=== PATIENT | female | born 1945 | race Caucasian/White ===

== ENCOUNTER 2017-01-17 08:30 | Outpatient (CLI) | payer MEDICARE, MEDICAID ==
--- NOTE | 2017-01-17 10:39 | CT ---
CT CHEST WITHOUT CONTRAST: Date: 01/17/17 Multiple axial tomograms obtained through chest without IV enhancement. HISTORY: Follow-up pulmonary nodule. Comparison made to exam of 11/21/15. FINDINGS: The mass in anterior left upper lobe is again seen. In the axial plane today, this mass measures 1.7 x 1.5 cm. It is slightly larger in width when compared to the prior exam, at which time the width was 1.1 cm. AP dimension is stable. Calcified granuloma in the right middle lobe is unchanged. There are chronic lung parenchymal changes which appear stable. Mediastinum is unremarkable with nonspecific lymph nodes which appear stable. Images through the upper abdomen are unremarkable. IMPRESSION: The left upper lobe mass is minimally larger today as noted above. Lungs otherwise are unchanged. POS: REHANAH
== END 2017-01-17 08:31 | disposition home or self-care (01) ==
LOC: CT 08:30
PROVIDERS: ATTEND Internal Medicine
DX: R91.1 Solitary pulmonary nodule (principal); R91.8 Other nonspecific abnormal finding of lung field
CPT/HCPCS: 71250

== ENCOUNTER 2017-02-28 07:32 | Outpatient (CLI) | payer MEDICARE, MEDICAID ==
--- NOTE | 2017-02-28 15:37 | PET ---
NUCLEAR MEDICINE FDG PET CT: (Positron Emission Tomography) DATE: 02/28/17 HISTORY: 71-year-old female with solitary pulmonary nodule in left upper lobe. COMPARISON: None. TECHNIQUE: IV injection F-18 Fluorodeoxyglucose (FDG) dose: 12.2 mCi PET and attenuation-correction CT performed from skull base to proximal thighs. FINDINGS: SUV (standard uptake value) numbers given are maximum SUV's: The noncalcified, spiculated pulmonary nodule in the anterior segment of the left upper lobe is FDG-a vid, with SUV of 5.5. Based on its morphology and the FDG avidity, this is highly likely to represent primary lung cancer. There are no other hypermetabolic pulmonary nodules. There are no mediastinal or hilar hypermetabolic lymph nodes. There is no abnormally FDG-avid lesion within the abdomen, pelvis, or neck. No FDG-avid osseous lesions are identified. IMPRESSION: 1. Hypermetabolic pulmonary nodule in the anterior segment of left upper lobe is evidence for primar y lung cancer. 2. No evidence of metastatic disease. SUE Cotton POS: SHIVAM
== END 2017-02-28 07:33 | disposition home or self-care (01) ==
LOC: PET 07:32
PROVIDERS: ATTEND Internal Medicine
DX: R91.1 Solitary pulmonary nodule (principal)
CPT/HCPCS: 78815; A9552

== ENCOUNTER 2017-04-02 13:38 | Outpatient (CLI) | payer MEDICARE, MEDICAID | END 2017-04-02 13:39 | disposition home or self-care (01) | LOC: CP 13:38 | PROVIDERS: ATTEND Internal Medicine | DX: R91.8 Other nonspecific abnormal finding of lung field (principal); J44.9 Chronic obstructive pulmonary disease, unspecified | CPT/HCPCS: 94060; 94727; 94729 ==

== ENCOUNTER 2017-09-28 11:33 | Observation (INO) | payer MEDICARE, MEDICAID ==
[2017-09-28 12:04] LABS: Hemoglobin 13.1 g/dL (12.0-16.0); Mean Corpuscular HGB CONC 35.2 g/dL (32.0-36.0); Mean Corpuscular Hemoglobin 31.4 pg (27.0-31.0); Mean Corpuscular Volume 89.3 fL (78.0-98.0); Mean Platelet Volume 6.7 fL (7.4-10.4); Platelet Count 242 thou/uL (130-400); RBC Distribution Width 13.4 % (11.5-14.5); Red Blood Cell (RBC) Count 4.16 mill/uL (4.20-5.40); White Blood Cell (WBC) Count 11.3 thou/uL (4.8-10.8)
[2017-09-28 12:23] LABS: ALT (SGPT) 8 U/L (8-55); AST (SGOT) 5 U/L (5-34); Albumin 3.9 g/dL (3.4-4.8); Alkaline Phosphatase 58 U/L (40-150); Anion Gap 10 mmol/L (10-20); BUN (Urea Nitrogen) 11 mg/dL (9.8-20.1); Bilirubin, Total 0.2 mg/dL (0.2-1.2); CK (CPK) 97 U/L (29-168); Calc. Creatinine Clearance 0 mL/min (70-130); Calcium 9.2 mg/dL (7.8-10.44); Carbon Dioxide 24 mmol/L (23-31); Chloride 109 mmol/L (98-107); Estimated GFR-MDRD 71; Globulin 2.3 g/dL (2.4-3.5); Glucose 101 mg/dL (80-115); Protein, Total 6.2 g/dL (6.0-8.3); Sodium 139 mmol/L (136-145)
[2017-09-28] MEDS ORDERED: methylPREDNISolone Sod Succ/PF 125 MG/2 ML VIAL ONE (12:24)
[2017-09-28 12:27] LABS: Troponin I Less than 0.010 ng/mL (< 0.028)
--- NOTE | 2017-09-28 12:31 | RAD ---
PORTABLE CHEST 1 VIEW: DATE: 09/28/17. TIME: 11:06 a.m. History Shortness of breath, chest pain. FINDINGS: Comparison is made with the exam of 05/12/14. The heart size is normal. The lungs are expanded without focal areas of consolidation, pneumothorax, or pleural effusions. IMPRESSION: No acute process. POS: [facility]
[2017-09-28 12:36] LABS: CKMB 7.7 ng/mL (0-6.6)
[2017-09-28 12:39] LABS: #Eosinphils 0.3 thou/uL (0.0-0.7); #Lymphocytes 3.2 thou/uL (1.20-3.40); #Monocytes 0.8 thou/uL (0.11-0.59); %Basophils 0.3 % (0.0-1.0); %Eosinophils 3.1 % (0.0-10.0); %Lymphocytes 28.1 % (21.0-51.0); %Monocytes 6.9 % (0.0-10.0); %Neutrophils 61.7 % (42.0-75.0); Band 1 % (5-11); Eosinophils 4 % (0-10); Lymphocytes 18 % (21-51); MDiff Complete? YES; Monocytes 4 % (0-10); Neutrophil 73 % (42-75); PLT Morphology Comment Appears Adequate; RBC Morphology Normal
[2017-09-28] MEDS ORDERED: HYDROcodone/Acetaminophen 5/325 mg Tablet ONE ×2 (13:06→13:13)
[2017-09-28] MEDS ORDERED: Acetaminophen 325 MG TAB PO PRN (14:52)
[2017-09-28] MEDS ORDERED: cloNIDine 0.1 MG TAB PO PRN (14:52)
[2017-09-28] MEDS ORDERED: Milk Of Magnesia 30 ML UDCUP PO PRN (14:52)
[2017-09-28] MEDS ORDERED: Ondansetron ODT 4 MG TAB PO PRN (14:52)
[2017-09-28] MEDS ORDERED: Zolpidem Tartrate 5 MG TAB PO PRN (14:52)
[2017-09-28] MEDS ORDERED: Chloraseptic Spray 180 ml Bottle PO PRN (14:52)
[2017-09-28] MEDS ORDERED: Artificial Tears 18 DROP/0.9 ML EA EYE PRN (14:52)
[2017-09-28] MEDS ORDERED: hydrALAZINE 20 MG/ML VIAL SLOW IVP PRN (14:52)
[2017-09-28] MEDS ORDERED: Mag-Al 1200 mg/1200 mg/30 ML UDCUP PO PRN (14:52)
[2017-09-28] MEDS ORDERED: Sodium Chloride 0.65% Nasal 44 ML BOT EA NARE PRN (14:52)
[2017-09-28] MEDS ORDERED: Loratadine 10 MG TAB PO PRN (14:52)
[2017-09-28] MEDS ORDERED: Eucerin (Mineral Oil/Petrolatum,White) 30 gm Jar TOP PRN (14:52)
[2017-09-28] MEDS ORDERED: Nitroglycerin 0.4 MG TAB (25 Tab Bottle) SL PRN (14:52)
[2017-09-28] MEDS ORDERED: Ondansetron HCl/PF 4 MG/2 ML Vial IVP PRN (14:52)
[2017-09-28] MEDS ORDERED: Loperamide HCl 2 MG CAP PO PRN (14:52)
[2017-09-28] MEDS ORDERED: Senokot 8.6 MG TAB PO PRN (14:52)
[2017-09-28] MEDS ORDERED: Diabetic Tussin 200 MG/10 ML UDCUP PO PRN (14:52)
--- NOTE | 2017-09-28 15:04 | HP ---
PRIMARY CARE PHYSICIAN: Karen Le MD REASON FOR ADMISSION: Radiation-induced pneumonitis, chest discomfort. HISTORY OF PRESENT ILLNESS: This is a 72-year-old female, who was diagnosed with a left upper lobe s piculated lung mass back in 2015. She had biopsy of the lung mass, and subsequently, pathology repor t was negative for any malignancy. Patient had repeat imaging in 11/2015, which showed left upper lo be spiculated lung mass and the patient underwent PET scan early this year, which showed hypermetabol ic activity and worrisome for lung cancer. The patient was following an oncologist and she received radiation therapy. Her last radiation was on end of July. After radiation therapy, patient started having upper respiratory as well as lower respiratory symptoms. She has increasing amount of cough w ith intermittent scant amount of sputum. She also had hoarseness of voice. She also had intermitten t runny nose. She denies any hemoptysis. Because of excessive amount of coughing, patient was hurti ng in her chest all the time. She also had 2 times different steroid course as well as antibiotic co urse. One was given by primary care physician and one time given by oncologist. Even after that, th e patient was not feeling better. Her hoarseness, cough, shortness of breath with chest discomfort w as getting worse. She was using her inhaler. She was taking all her medication, but that was not he lping. During this period, the patient also continued to smoke about 1 pack per day as patient was n ot feeling better and that is why primary care physician referred her to go to the hospital for evalu ation. This patient is supposed to get another CT scan in November, and subsequently, she has to follow up wi Dr. Caceres. She denies any fever or chills. She denies any nausea, vomiting, diaphoreses. Her ch est discomfort is mostly related with coughing. She denies any radiation. She denies any associated diaphoresis, nausea, vomiting. She does report some palpitations sometimes, but she never had any d izziness or syncope. She denies any UTI symptoms. She denies any constipation, diarrhea, melena, hematochezia. She denie s any orthopnea, PND, or leg swelling. She denies any calf tenderness. ALLERGIES: No known drug allergy. CURRENT HOME MEDICATIONS: Nitroglycerin 0.4 mg sublingual p.r.n., ProAir HFA 2 puffs q.6 hourly p.r. n., DuoNeb q.6 hourly p.r.n., amitriptyline 25 mg p.o. t.i.d., aspirin 81 mg p.o. daily, Symbicort 2 puff inhalation b.i.d., chlorzoxazone one tablet p.o. daily, Ativan 0.5 mg 3 times daily p.r.n., didier phylline 300 mg twice daily, Plavix 75 mg p.o. daily, Coreg 3.125 mg p.o. b.i.d., Protonix 40 mg p.o. daily, Zocor 40 mg p.o. at bedtime, lisinopril 2.5 mg daily, Tessalon 100 mg 3 times daily, [place] on a p.r.n. basis. EMERGENCY ROOM COURSE: Initially, patient was wheezing and that is why patient was given DuoNeb ther apy. In the emergency room, she was given Solu-Medrol 125 mg and aspirin 325 mg. PAST MEDICAL HISTORY: History of spiculated lung mass in left upper lobe, which turned out to be madhuri g cancer, required radiation therapy; history of recurrent syncope is slightly irregular heartbeat, r equired loop recorder; coronary artery disease with history of DE with a history of cardiac catheteri zation and stent; COPD; ongoing tobacco abuse disorder; gastroesophageal reflux disease; osteoarthrit is; osteoporosis; hypertension; dyslipidemia. PAST PSYCHIATRIC HISTORY: Anxiety and depression. PAST SURGICAL HISTORY: Cholecystectomy, , hysterectomy, cardiac catheterization with stenti ng, loop recorder implantation. FAMILY HISTORY: Positive for coronary artery disease among several other family members. SOCIAL HISTORY: The patient has continued to smoke about half to 1 pack per day. She denies any alc ohol abuse. She denies any other illicit drug abuse. She lives at home with family. REVIEW OF SYSTEMS: The following complete review of systems was negative, unless otherwise mentioned in the HPI or below: Constitutional: Weight loss or gain, ability to conduct usual activities. Sk in: Rash, itching. Eyes: Double vision, pain. ENT/Mouth: Nose bleeding, neck stiffness, pain, te nderness. Cardiovascular: Palpitations, dyspnea on exertion, orthopnea. Respiratory: Shortness of breath, wheezing, cough, hemoptysis, fever, or night sweats. Gastrointestinal: Poor appetite, abdo bernadine pain, heartburn, nausea, vomiting, constipation, or diarrhea. Genitourinary: Urgency, frequen cy, dysuria, nocturia. Musculoskeletal: Pain, swelling. Neurologic/Psychiatric: Anxiety, depressi on. Allergy/Immunologic: Skin rash, bleeding tendency. Please see my HPI for pertinent positive an d negative. All other review of systems reviewed and negative except as mentioned in the HPI. PHYSICAL EXAMINATION: VITAL SIGNS: On arrival, blood pressure 117/51, pulse 83, respiratory rate 17, temperature 98.4, sat uration 96% on room air, weight 74.8 kilograms. GENERAL: Patient is currently alert, awake, in no obvious acute distress. She has soft hoarse voice . HEENT: Eyes: Pupils round, reactive to light. Extraocular muscle intact. ENT: Oropharynx within normal limits, mild pharyngeal erythema noted. No exudate. NECK: Supple. Mild palpable lymphadenopathy. No JVD, no thyromegaly, no carotid bruit. LUNGS: Bilateral end expiratory wheezing heard. No rales, no accessory muscles of respiration in us e. CARDIAC: S1 and S2 appears regular. No murmur, no gallop, no rub. ABDOMEN: Soft, bowel sounds present, nontender, nondistended. No organomegaly, no mass, no suprapub ic tenderness. CHEST WALL: The patient does have reproducible chest discomfort on deep palpation. MUSCULOSKELETAL: Range of motion is normal. No edema, passive movement of all joints are normal. SKIN: No skin rash. NEUROLOGIC: Nonfocal examination. The patient moves all 4 limbs. Plantar bilateral flexor. BACK EXAMINATION: No CVA tenderness. No point tenderness. HEMATOLOGICAL SYSTEM: Mild palpable lymph nodes in the neck. PSYCHIATRIC: Normal affect. SIGNIFICANT LABORATORY DATA: EKG showing normal sinus rhythm, right atrial enlargement. Chest x-ray showing chronic COPD changes. CBC: WBC 11.3, hemoglobin 13.1, platelets 242. BMP: Sodium 139, po tassium 4.0, chloride 109, carbon dioxide 24, anion gap 10, BUN 11, creatinine 0.80, glucose was 101, calcium 9.2. LFT: AST 5, ALT 8, alkaline phosphatase 58, albumin 3.9, CK 97, CK-MB 7.7, troponin I less than 0.010. BNP 48.0. ASSESSMENT AND PLAN: 1. Chest discomfort. Patient's chest pain is related with coughing. She does have reproducible sanaz n. She has elevated CK-MB, but negative troponin. Her EKG is not showing any acute ischemic changes . The patient does not have any clinical history to support thromboembolic disorder, but she does richardson ve a history of primary lung cancer, which was treated with radiation. I am suspecting, based on upp er and lower respiratory symptoms, the patient might have a radiation pneumonitis that is contributin g to her chest discomfort. At this point, the patient does not need any more testing. She had a car diac catheterization in 2014. The clinical presentation is not consistent with coronary artery disea se. We will defer further testing after discharge. 2. Coronary artery disease with history of cardiac catheterization in 2014 and stent. The patient w ill continue all her previous home medication including aspirin, Plavix, statin therapy, and beta-blo cker therapy. We will check lipid profile tomorrow morning for risk stratification. 3. Elevated CK-MB. We will do serial cardiac enzymes and we will rule out acute coronary syndrome a nd monitor on telemetry floor. 4. Anxiety and depression. We will continue amitriptyline, lorazepam as per home dosage after confi rmation of dose. 5. Hypertension. We will continue lisinopril and Coreg as per home dosage after confirmation of med ication. 6. Chronic obstructive pulmonary disease with possible exacerbation with radiation pneumonitis/laryn gotracheobronchitis. We will check a respiratory virus panel. We will continue the Solu-Medrol 40 m g IV q.6 hourly, empiric antibiotic therapy with cefepime 1 gram q.12 hourly, Mucinex 600 mg twice da Sade [place] 2 puff inhalation b.i.d., theophylline ER 300 mg p.o. b.i.d. 7. Tobacco abuse disorder. Smoking cessation counseling given. Healthy lifestyle measures discusse d with the patient. We will offer nicotine patch if needed. 8. Dyslipidemia. Continue Zocor 40 mEq while in hospital. Check lipid profile for risk stratificat ion. 9. History of a spiculated lung mass in the right upper lobe. Patient has finished radiation therap y. We will do CT chest for further evaluation and then she will follow up with Oncology and Dr. Juan Alberto sosa as an outpatient basis. 10. Deep venous thrombosis prophylaxis not needed, because we are expecting discharge in 24 hours. 11. Gastrointestinal prophylaxis, Protonix 40 mg p.o. daily. CODE STATUS: The patient is FULL CODE. The patient does not have any surrogate decision maker. Disposition plan based on clinical course. We are expecting patient's stay in hospital [address] of care discussed with the patient in detail.
[2017-09-28 15:39] LABS: Troponin I 0.028 ng/mL (< 0.028)
[2017-09-28] MEDS ORDERED: Prevnar 13-Val Conj/PF 0.5 ML SYRINGE IM ONE (15:45)
[2017-09-28 16:43] VITALS: BMI 30.7
[2017-09-28] MEDS: Cefepime 2 GM in Sodium Chloride 0.9% 100 ML IVPB SCH (17:12)
[2017-09-28] MEDS: Carvedilol 3.125 MG TAB PO SCH (17:18)
[2017-09-28] MEDS ORDERED: Lorazepam 1 MG TAB PO PRN (17:39)
[2017-09-28] MEDS: Mometasone/Formoterol 120 PUFF INHALER INH SCH (18:18)
[2017-09-28 18:25] LABS: Troponin I Less than 0.010 ng/mL (< 0.028)
[2017-09-28] MEDS: guaiFENesin ER 600 MG TAB PO SCH (20:22)
[2017-09-28] MEDS ORDERED: Atorvastatin Calcium 20 MG TAB PO SCH (21:00)
[2017-09-29] MEDS: HYDROcodone/Acetaminophen 5/325 mg Tablet PO PRN ×2 (03:45→11:28)
[2017-09-29] MEDS: Cefepime 2 GM in Sodium Chloride 0.9% 100 ML IVPB SCH (04:48)
[2017-09-29] MEDS: Mometasone/Formoterol 120 PUFF INHALER INH SCH (06:55)
[2017-09-29] MEDS ORDERED: Lisinopril 2.5 MG TAB PO SCH (09:00)
[2017-09-29] MEDS ORDERED: Clopidogrel Bisulfate 75 MG TAB PO SCH (09:00)
[2017-09-29] MEDS: Carvedilol 3.125 MG TAB PO SCH (09:11)
[2017-09-29] MEDS: guaiFENesin ER 600 MG TAB PO SCH (09:11)
--- NOTE | 2017-09-29 09:13 | PDOC.PN ---
- Subjective Encounter Start Date: 09/29/17 Encounter Start Time: 07:50 -: old records requested/rev Patient seen and examined. No new complaints. No overnight events pt feels better today - Objective Resuscitation Status: Resuscitation Status FULL:Full Resuscitation MAR Reviewed: Yes Vital Signs & Weight: Vital Signs (12 hours) Temp Pulse Resp BP BP Pulse Ox 09/29/17 06:55 77 16 09/29/17 06:51 94 L 09/29/17 06:48 77 16 09/29/17 03:46 97.9 F 75 20 104/54 L 96 09/29/17 02:20 97.7 F 77 16 94/54 L 95 09/29/17 01:02 77 16 94 L 09/29/17 00:01 72 20 90/48 L 96 Weight Weight 168 lb 5 oz I&O: 09/28/17 09/29/17 09/30/17 06:59 06:59 06:59 Intake Total 1160 Balance 1160 Result Diagrams: 09/28/17 11:55 09/28/17 11:55 EKG Reviewed by me: Yes (nsr) Phys Exam - Physical Examination Constitutional: NAD HEENT: PERRLA, moist MMs, sclera anicteric Neck: no JVD, supple Respiratory: no wheezing, no rales, no rhonchi Cardiovascular: RRR, no significant murmur, no rub Gastrointestinal: soft, non-tender, no distention, positive bowel sounds Musculoskeletal: no edema, pulses present Neurological: non-focal, normal sensation, moves all 4 limbs Psychiatric: normal affect, A&O x 3 Skin: no rash, normal turgor Dx/Plan (1) COPD exacerbation Code(s): J44.1 - CHRONIC OBSTRUCTIVE PULMONARY DISEASE W (ACUTE) EXACERBATION Status: Acute (2) Laryngotracheobronchitis Code(s): J40 - BRONCHITIS, NOT SPECIFIED ACUTE OR CHRONIC Status: Acute (3) Lung cancer Code(s): C34.90 - MALIGNANT NEOPLASM OF UNSP PART OF UNSP BRONCHUS OR LUNG Status: Acute (4) Radiation pneumonitis Code(s): J70.0 - ACUTE PULMONARY MANIFESTATIONS DUE TO RADIATION Status: Acute (5) Anxiety and depression Code(s): F41.9 - ANXIETY DISORDER, UNSPECIFIED; F32.9 - MAJOR DEPRESSIVE DISORDER, SINGLE EPISODE, UNSPECIFIED Status: Chronic (6) CAD (coronary artery disease) Code(s): I25.10 - ATHSCL HEART DISEASE OF [place] CORONARY ARTERY W/O ANG PCTRS Status: Chronic (7) Hypertension Code(s): I10 - ESSENTIAL (PRIMARY) HYPERTENSION Status: Chronic (8) Obesity (BMI 30.0-34.9) Code(s): E66.9 - OBESITY, UNSPECIFIED Status: Chronic (9) Tobacco abuse Code(s): Z72.0 - TOBACCO USE Status: Chronic - Plan cont current plan of care, continue antibiotics, respiratory therapy * counselled to avoid smoking * medication reviewed as below * symptomatic treatment * on discharge will give omnicef, prednisone, mucinex for 7 days * discharge later today * will get CT chest. Review of Systems - Review of Systems Eyes: negative: Pain, Vision Change, Conjunctivae Inflammation, Eyelid Inflammation, Redness, Other ENT: negative: Ear Pain, Ear Discharge, Nose Pain, Nose Discharge, Nose Congestion, Mouth Pain, Mouth Swelling, Throat Pain, Throat Swelling, Other Respiratory: negative: Cough, Dry, Shortness of Breath, Hemoptysis, SOB with Excertion, Pleuritic Pain, Sputum, Wheezing Cardiovascular: negative: chest pain, palpitations, orthopnea, paroxysmal nocturnal dyspnea, edema, light headedness, other Gastrointestinal: negative: Nausea, Vomiting, Abdominal Pain, Diarrhea, Constipation, Melena, Hematochezia, Other Genitourinary: negative: Dysuria, Frequency, Incontinence, Hematuria, Retention , Other Musculoskeletal: negative: Neck Pain, Shoulder Pain, Arm Pain, Back Pain, Hand Pain, Leg Pain, Foot Pain, Other Skin: negative: Rash, Lesions, Ryan, Bruising, Other - Medications/Allergies Allergies/Adverse Reactions: Allergies Allergy/AdvReac Type Severity Reaction Status Date / Time No Known Allergies Allergy Verified 09/28/17 15:04 Medications: Current Medications Acetaminophen (Tylenol) 650 mg PO Q4H PRN PRN Reason: Headache/Fever or Pain Hydrocodone Bitart/Acetaminophen ([place] 5/325) 1 tab PO Q4H PRN PRN Reason: Moderate Pain (4-6) Last Admin: 09/29/17 03:45 Dose: 1 tab Al Hydroxide/Mg Hydroxide (Maalox) 30 ml PO Q6H PRN PRN Reason: Heartburn or Indigestion Albuterol/Ipratropium (Duoneb) 3 ml NEB [id number] [facility] Last Admin: 09/29/17 06:48 Dose: 3 ml Artificial Tears (Tears Naturale) 0 drop EA EYE PRN PRN PRN Reason: Dry Eyes Aspirin (Aspirin Chewable) 81 mg PO DAILY [facility] Atorvastatin Calcium (Lipitor) 20 mg PO HS [facility] Last Admin: 09/28/17 20:22 Dose: 20 mg Carvedilol (Coreg) 3.125 mg PO BID-WM [facility] Last Admin: 09/28/17 17:18 Dose: 3.125 mg Clonidine (Catapres) 0.1 mg PO Q4H PRN PRN Reason: Systolic BP > 180 Clopidogrel Bisulfate (Plavix) 75 mg PO DAILY [facility] Guaifenesin (Mucinex) 600 mg PO Q12HR [facility] Last Admin: 09/28/17 20:22 Dose: 600 mg Guaifenesin (Robitussin Sf) 200 mg PO Q4H PRN PRN Reason: Cough Hydralazine HCl (Apresoline) 10 mg SLOW IVP Q4H PRN PRN Reason: Systolic BP > 180 Cefepime HCl 2 gm/ Sodium (Chloride) 100 mls @ 200 mls/hr IVPB 0400,1600 [facility] Last Admin: 09/29/17 04:48 Dose: 100 mls Lisinopril (Zestril) 2.5 mg PO DAILY [facility] Loperamide HCl (Imodium) 2 mg PO PRN PRN PRN Reason: Diarrhea/Loose Stools Loratadine (Claritin) 10 mg PO DAILYPRN PRN PRN Reason: Sinus Symptoms Lorazepam (Ativan) 0.5 mg PO TID PRN PRN Reason: Anxiety Last Admin: 09/28/17 18:29 Dose: 0.5 mg Magnesium Hydroxide (Milk Of Magnesium) 30 ml PO DAILYPRN PRN PRN Reason: Constipation Methylprednisolone Sodium Succinate (Solu-Medrol) 40 mg IVP Q6HR [facility] Last Admin: 09/29/17 05:36 Dose: 40 mg Mineral Oil/White Petrolatum (Eucerin Cream) 0 gm TOP BIDPRN PRN PRN Reason: Dry Skin Mometasone Furoate/Formoterol Fumar (Dulera 200 Mcg/5 Mcg Inhaler) 2 puff INH BID-RT [facility] Last Admin: 09/29/17 06:55 Dose: 2 puff Nitroglycerin (Nitrostat) 0.4 mg SL Q5MIN PRN PRN Reason: Chest Pain Ondansetron HCl (Zofran Odt) 4 mg PO Q6H PRN PRN Reason: Nausea/Vomiting Ondansetron HCl (Zofran) 4 mg IVP Q6H PRN PRN Reason: Nausea/Vomiting Phenol (Chloraseptic [place] 180 Ml Bot) 0 ml PO PRN PRN PRN Reason: Sore Throat Senna (Senokot) 2 tab PO HSPRN PRN PRN Reason: Constipation Sodium Chloride ([place] Nasal [place] 0.65%) 0 ml EA NARE QIDPRN PRN PRN Reason: Nasal Congestion Zolpidem Tartrate (Ambien) 5 mg PO HSPRN PRN PRN Reason: Insomnia
[2017-09-29 09:18] VITALS: BP 103/54; TEMP 97.6
--- NOTE | 2017-09-29 10:40 | DIS ---
PRIMARY CARE PHYSICIAN: Karen Le MD DATE OF ADMISSION: 09/28/2017 DATE OF DISCHARGE: 09/29/2017 DISCHARGE DISPOSITION: Home. PRIMARY DISCHARGE DIAGNOSES: 1. Radiation pneumonitis. 2. Laryngotracheobronchitis. SECONDARY DISCHARGE DIAGNOSES: Tobacco abuse disorder, chronic obstructive pulmonary disease with mi ld exacerbation, hypertension, coronary artery disease, anxiety and depression, history of lung cance r on radiation therapy. PRIMARY PROCEDURE/OPERATION: None. RADIOLOGICAL INVESTIGATION: Chest x-ray was unremarkable. CT chest showed slightly reduced size of left upper lobe spiculated lung mass. SIGNIFICANT LABORATORIES: WBC 11.3, hemoglobin 13.1, platelets 242. Sodium 139, potassium 4.0, BUN 11, creatinine 0.80, calcium 9.2. LFT normal. Cardiac enzymes negative. BNP 48. Virus panel negat soniya. DISCHARGE MEDICATIONS: New medications, Omnicef 300 mg p.o. b.i.d. for 7 days, Mucinex 600 mg twice daily for 7 days, prednisone 20 mg p.o. b.i.d. for 7 days, Florastor 250 mg p.o. daily for 7 days. Continue following medications; ProAir HFA 2 puffs q.4 hourly p.r.n., nitroglycerin 0.4 mg sublingual p.r.n., DuoNeb q.6 hourly, Phenergan 25 mg q.6 hourly p.r.n., Elavil 25 mg p.o. t.i.d., aspirin 81 m g daily, Tessalon 100 mg p.o. t.i.d. p.r.n., Symbicort 2 puff inhalation b.i.d., chlorzoxazone 500 mg p.o. t.i.d., Plavix 75 mg p.o. daily, Atrovent inhaler 2 puffs q.i.d. p.r.n., lisinopril 1.25 mg p.o . daily, Ativan 0.5 mg p.o. t.i.d. p.r.n., Protonix 40 mg p.o. daily, Zocor 40 mg p.o. at bedtime, th eophylline ER 300 mg p.o. b.i.d., [place] 10 one tablet q.6 hourly p.r.n., Coreg 3.125 mg p.o. b.i.d. CONTRAINDICATIONS: None. CODE STATUS: FULL CODE. INPATIENT CONSULTANTS: None. ALLERGIES: No known drug allergies. DISCHARGE PLAN: Post hospital, the patient is advised to follow up with primary care physician. The patient will make appointment with oncologist as well as biology research assistant after discharge. HOSPITAL COURSE: A 72-year-old female who was sick since August after finishing radiation therapy for her left upper lobe spiculated lung mass. We suspected based on her presentation radiation pneumonit is. She was having cough, hoarseness of voice, increasing dyspnea which was persisted despite 2 time s antibiotic and steroid course. Her chest x-ray did not show any pneumonia. We did CT chest which still showed a spiculated lung mass, but is slightly reduced in size without any significant change. Patient's chest discomfort was related with coughing spell from her chest wall discomfort. We did n ot pursue any cardiac testing this time. Her cardiac enzymes negative. Telemetry remained unremarka ble. Patient was treated with cefepime, Solu-Medrol, DuoNeb, Mucinex, and next day, patient's condit ion significantly improved. She was feeling much better and expressed her wish to go home. On disch arge, we changed above-mentioned medication p.o. and sent to her pharmacy. The patient will follow u p with oncologist and biology research assistant after discharge, the patient is medically stable for discharge to day. Please see my progress note from today for further detail.
--- NOTE | 2017-09-29 12:19 | CT ---
CT CHEST WITH CONTRAST: Multiple axial tomograms were obtained through the chest with IV enhancement. INDICATION: Lung cancer. Followup pulmonary mass. COMPARISON: Comparison is made to the chest CT of 01/17/17. FINDINGS: The spiculated mass in the left upper lobe is again seen. This mass does not appear significantly ch anged in size when compared to the prior study. On coronal plane today, the mass is measured at 1.9 x 1.6 cm whereas previous measurements were recorded at 2.0 x 1.7 cm. Axial measurements were also s table today recorded at approximately 1.5 cm. No evidence of infiltrate or effusion. There is a 5 mm calcified granuloma in the right mid lung. T here is a faint pleural-based 5 mm nodule right mid lung. These are both stable. Mediastinum is unr emarkable. There is a paratracheal lymph node which measures up to 1.2 cm, which is stable. Images through the upper abdomen are unremarkable. IMPRESSION: 1. Left upper lobe mass density is stable from prior exam of 01/17/17. 2. No infiltrate or other acute process identified. POS: SHIVAM
[2017-09-29] MEDS ORDERED: ISOVUE-370 76%-LOCM 1 ML ONE (15:02)
== END 2017-09-29 12:18 | disposition home or self-care (01) ==
LOC: ERS 11:33 → 2SW 14:48
PROVIDERS: ADMIT Internal Medicine; ATTEND Internal Medicine
DX: J70.0 Acute pulmonary manifestations due to radiation (principal); J40 Bronchitis, not specified as acute or chronic; C34.12 Malignant neoplasm of upper lobe, left bronchus or lung; J44.1 Chronic obstructive pulmonary disease with (acute) exacerbation; I25.10 Atherosclerotic heart disease of native coronary artery without angina pectoris; I25.2 Old myocardial infarction; F17.210 Nicotine dependence, cigarettes, uncomplicated; K21.9 Gastro-esophageal reflux disease without esophagitis; M19.90 Unspecified osteoarthritis, unspecified site; M81.0 Age-related osteoporosis without current pathological fracture; I10 Essential (primary) hypertension; E78.5 Hyperlipidemia, unspecified; F41.8 Other specified anxiety disorders; E66.9 Obesity, unspecified; Z68.30 Body mass index [BMI] 30.0-30.9, adult; Z79.01 Long term (current) use of anticoagulants; Z79.82 Long term (current) use of aspirin; Z79.52 Long term (current) use of systemic steroids; Z79.899 Other long term (current) drug therapy; Z95.5 Presence of coronary angioplasty implant and graft
CPT/HCPCS: 71045; 71260; 80053; 82550; 82553; 83880; 84484 ×2; 85025; 87633; 90670; 93005; 94640 ×4; 94664; 96365; 96366; 96374; 96376 ×2; 99285; G0009; G0378 ×2; 36415; 90471; J0692; J2920; J2930; J7050; J7620

== ENCOUNTER 2018-06-19 09:35 | Outpatient (CLI) | payer MEDICARE, MEDICAID ==
--- NOTE | 2018-06-19 10:58 | MMO ---
Bilateral MAMMO Bilat Screen [facility]. CLINICAL HISTORY: Patient is 73 years old and is seen for screening. The patient has no family history of breast cancer. The patient has a history of lung cancer in 2017. VIEWS: The views performed were: bilateral craniocaudal with tomosynthesis and bilateral mediolateral oblique with tomosynthesis. FILMS COMPARED: The present examination has been compared to prior imaging studies performed at [facility] on 01/28/2007, 02/05/2008, 02/06/2010 and 06/07/2015. MAMMOGRAM FINDINGS: There are scattered fibroglandular densities. There are stable benign appearing calcifications seen in both breasts. There are no suspicious masses, suspicious calcifications, or new areas of architectural distortion. IMPRESSION: THERE IS NO MAMMOGRAPHIC EVIDENCE OF MALIGNANCY. A ROUTINE FOLLOW-UP MAMMOGRAM IN 1 YEAR IS RECOMMENDED. THE RESULTS OF THIS EXAM WERE SENT TO THE PATIENT. ACR BI-RADS Category 2 - Benign finding MAMMOGRAPHY NOTE: 1. A negative mammogram report should not delay a biopsy if a dominant of clinically suspicious mass is present. 2. Approximately 10% to 15% of breast cancers are not detected by mammography. 3. Adenosis and dense breasts may obscure an underlying neoplasm.
== END 2018-06-19 09:36 | disposition home or self-care (01) ==
LOC: BICMAMMO 09:35
PROVIDERS: ATTEND Family Medicine
DX: Z12.31 Encounter for screening mammogram for malignant neoplasm of breast (principal); Z85.118 Personal history of other malignant neoplasm of bronchus and lung
CPT/HCPCS: 77063; 77067

== ENCOUNTER 2018-06-19 11:07 | Outpatient (CLI) | payer MEDICARE, MEDICAID ==
--- NOTE | 2018-06-19 12:26 | CT ---
NONCONTRAST ENHANCED CT IMAGES CHEST: DATE: 06/19/2018. COMPARISON: Comparison is made to previous exam from 01/17/2017. FINDINGS: Noncontrast-enhanced CT of the chest demonstrates a spiculated ill-defined mass in the anterior aspec t of the left upper lobe measuring approximately 15 mm in diameter. This has not significantly mata ed since the previous exam. There is volume loss in the left upper lobe anterior aspect. Some fibro bullous changes seen also in the right upper lobe. Extensive coronary artery calcification seen. Granuloma is seen in the right middle lobe. There is also interval development of a wedge-shaped pleural-based density in the right middle lobe w hich was not present on the previous exam. This area measures approximately 2.0 x 1.5 cm and may rep resent an area of mass-like density or scar. Correlate with followup images and/or PET imaging if in dicated. IMPRESSION: 1. Stable left upper lobe spiculated mass. 2. Newly developed right middle lobe opacity. Malignancy cannot be excluded. POS: C
== END 2018-06-19 11:08 | disposition home or self-care (01) ==
LOC: BICCT 11:07
PROVIDERS: ATTEND Internal Medicine
DX: J44.9 Chronic obstructive pulmonary disease, unspecified (principal); R91.1 Solitary pulmonary nodule; R91.8 Other nonspecific abnormal finding of lung field; E78.00 Pure hypercholesterolemia, unspecified
CPT/HCPCS: 36415; 71250; 80053; 80061

== ENCOUNTER 2018-10-07 08:49 | Outpatient (CLI) | payer MEDICARE, MEDICAID ==
--- NOTE | 2018-10-07 09:40 | CT ---
CT Chest WO Con History: Lung nodule. Lung cancer with radiation. Comparison: CT chest June 19, 2018 Findings: Size unchanged left upper lobe pulmonary nodule measuring up to 1.4 cm in greatest dimensio n with peripheral cicatrization. Interval near complete resolution of the previously described right middle lobe consolidation. No pneumothorax. No new suspicious pulmonary nodule. Nodule within t he right middle lobe axial image 66 is a cluster of nodules measuring up to 7 mm, unchanged in the comparison examination although increased in size from 2017. No pneumothorax. No effusion. Moderate vascular calcifications. No mediastinal adenopathy. Thoracic spine is without compression deformity. No suspicious osteolytic or osteoblastic lesions. Moderate centrilobular pulmonary emphysema. Impression: 1. Size unchanged left upper lobe mass as well as likely satellite right upper lobe nodule. 2. Interval resolution of the previously described right middle lobe consolidation. 3. No mediastinal adenopathy or evidence for new progressive metastatic disease.
== END 2018-10-07 08:50 | disposition home or self-care (01) ==
LOC: BICCT 08:49
PROVIDERS: ATTEND Internal Medicine
DX: R91.1 Solitary pulmonary nodule (principal)
CPT/HCPCS: 71250

== ENCOUNTER 2020-03-08 08:28 | Outpatient (CLI) | payer MEDICARE, MEDICAID ==
--- NOTE | 2020-03-08 09:20 | CT ---
CT OF THE CHEST WITH IV CONTRAST INDICATION: Follow-up pulmonary nodule COMPARISON: CT the thorax dated October 07, 2018 and September 29, 2017 FINDINGS: CHEST: Lungs: The pulmonary nodule within the anterior segment of the left upper lobe is stable in size jojo uring 2.3 x 1.3 cm with surrounding scarring. Scattered emphysema is stable. 4 mm pulmonary nodule within the right upper lobe is stable image 44 series 3. Calcified granuloma in the right upper lobe is stable. There is new tree-in-bud nodular opacity within the superior segment of the right lower lobe on image 51 of series 3. There is a sub-4 mm, subpleural pulmonary nodule within the apical segm ent of the right lower lobe on image 48 of series 3 which is new. The previously seen tree-in-bud type nodularity involving the right middle lobe has resolved. No suspicious pulmonary nodule is seen within the lingula or left lower lobe. Scattered emphysema is stable. Pleural space: No effusion. Mediastinum: No pathologically enlarged lymph nodes are evident. There are severe vascular calcificat ions seen involving the visualized vasculature. Upper abdomen:No acute abnormality. Osseous structures: No acute fracture or subluxation demonstrated. There is scattered degenerative an d osteoarthritic change present. Soft tissues:Normal. IMPRESSION: 1. The left upper lobe pulmonary nodule is surrounding post radiation therapy changes of the left upp er lobe are stable. 2. New tree-in-bud nodular opacities within the right lower lobe. Findings are suspicious for bronchi olitis. Recommend appropriate therapy and follow-up CT evaluation 6-8 weeks to document resolution. Previously seen tree-in-bud type nodularity involving the right middle lobe has resolved. 3. 4 mm right upper lobe pulmonary nodule is stable. There is stable emphysema.
[2020-03-08] MEDS ORDERED: Iopamidol 370 76% 100 ML VIAL ONE (13:54)
== END 2020-03-08 08:29 | disposition home or self-care (01) ==
LOC: BICCT 08:28
PROVIDERS: ATTEND Internal Medicine Critical Care Medicine
DX: R91.1 Solitary pulmonary nodule (principal); R91.8 Other nonspecific abnormal finding of lung field
CPT/HCPCS: 71260; 82565; Q9967

== ENCOUNTER 2020-05-25 10:38 | Outpatient (CLI) | payer MEDICARE, MEDICAID | END 2020-05-25 10:39 | disposition home or self-care (01) | LOC: BICMAMMO 10:38 | PROVIDERS: ATTEND Family Medicine | DX: Z12.31 Encounter for screening mammogram for malignant neoplasm of breast (principal); Z85.118 Personal history of other malignant neoplasm of bronchus and lung | CPT/HCPCS: 77063; 77067 ==

== ENCOUNTER 2020-12-04 18:44 | Inpatient (IN) | payer MEDICARE, MEDICAID ==
[~2020-12-04 18:44] MED LIST: Iopamidol-370 76% 500 ML 1 ML ONE
[2020-12-04] MEDS ORDERED: cefTRIAXone\\ROCEPHIN 1 GM VIAL ONE (19:11)
[2020-12-04] MEDS ORDERED: Azithromycin 500 MG VIAL ONE (19:11)
[2020-12-04 19:35] LABS: Hemoglobin 15.7 g/dL (12.0-16.0); Mean Corpuscular HGB CONC 33.5 g/dL (32.0-36.0); Mean Corpuscular Hemoglobin 29.3 pg (27.0-31.0); Mean Corpuscular Volume 87.5 fL (78.0-98.0); Mean Platelet Volume 6.8 fL (7.4-10.4); Platelet Count 465 thou/uL (130-400); RBC Distribution Width 15.2 % (11.5-14.5); Red Blood Cell (RBC) Count 5.35 mill/uL (4.20-5.40); White Blood Cell (WBC) Count 29.4 thou/uL (4.8-10.8)
[2020-12-04 19:52] LABS: Band 26 % (5-11); Lymphocytes 5 % (21-51); MDiff Complete? YES; Monocytes 4 % (0-10); Neutrophil 63 % (42-75); Platelet Morphology Comment Appears Increased; RBC Morphology Normal; Reactive Lymphocytes 2 % (0-10)
[2020-12-04 20:02] LABS: ALT (SGPT) 11 U/L (8-55); AST (SGOT) 13 U/L (5-34); Alkaline Phosphatase 110 U/L (40-110); Anion Gap 20 mmol/L (10-20); BUN (Urea Nitrogen) 12 mg/dL (9.8-20.1); Bilirubin, Total 0.6 mg/dL (0.2-1.2); Calc. Creatinine Clearance 0 mL/min (70-130); Carbon Dioxide 18 mmol/L (23-31); Chloride 107 mmol/L (98-107); Glucose 134 mg/dL (83-110); Potassium 4.9 mmol/L (3.5-5.1); Sodium 140 mmol/L (136-145)
[2020-12-04 20:06] LABS: Bilirubin Negative (Negative); Blood, Urine Negative (Negative); Clarity Clear (Clear); Glucose, Urine (Dipstick) Normal (Negative); Ketone, Urine Negative (Negative); Leukocyte Negative Leu/uL (Negative); Nitrite Negative (Negative); Protein, Urine (Dipstick) 10 mg/dL (Neg-Trace); Specific Gravity, Urine 1.008 (1.002-1.036); Urobilinogen Normal mg/dL (Less than 2)
[2020-12-04 20:16] LABS: CKMB 5.1 ng/mL (0-6.6)
[2020-12-04] MEDS ORDERED: Vancomycin 1 GM/200 ML BAG ONE (21:12)
[2020-12-04 22:09] LABS: SARS-CoV-2 NAA Rapid Test Not Detected (NotDetected)
[2020-12-04] MEDS ORDERED: Norepinephrine 8 MG/0.9% NS 250 ML ONE (22:10)
[2020-12-04 23:32] LABS: Lactic Acid 4.6 mmol/L (0.5-2.2)
[2020-12-04] MEDS ORDERED: Ondansetron PF 4 MG/2 ML Vial IVP PRN (23:46)
[2020-12-05] MEDS ORDERED: methylPREDNISolone Sod Succ/PF 125 MG/2 ML VIAL ONE (00:19)
[2020-12-05] MEDS: Sodium Chloride 0.9% 1,000 ML IV SCH ×2 (00:28→08:40)
[2020-12-05] MEDS: methylPREDNISolone Sod Succ 40 MG VIAL IVP SCH ×4 (00:28→18:45)
[2020-12-05] MEDS ORDERED: methylPREDNISolone Sod Succ 40 MG VIAL ONE ×4 (00:38→18:29)
[2020-12-05] MEDS: Norepinephrine 8 MG/0.9% NS 250 ML IVPB SCH ×2 (01:00→19:30)
[2020-12-05 02:44] LABS: Troponin I 0.024 ng/mL (< 0.028)
[2020-12-05 02:53] LABS: Band 45 % (5-11); Hemoglobin 13.9 g/dL (12.0-16.0); MDiff Complete? YES; Mean Corpuscular HGB CONC 32.9 g/dL (32.0-36.0); Mean Corpuscular Hemoglobin 29.1 pg (27.0-31.0); Mean Corpuscular Volume 88.5 fL (78.0-98.0); Mean Platelet Volume 7.2 fL (7.4-10.4); Metamyelocyte 2 % (0-0); Monocytes 10 % (0-10); Neutrophil 43 % (42-75); Platelet Count 333 thou/uL (130-400); Platelet Morphology Comment Appears Adequate; RBC Distribution Width 15.2 % (11.5-14.5); RBC Morphology Normal; Red Blood Cell (RBC) Count 4.78 mill/uL (4.20-5.40); White Blood Cell (WBC) Count 28.1 thou/uL (4.8-10.8)
[2020-12-05] MEDS ORDERED: Propofol 1,000 MG/100 ML VIAL IV ONE (03:01)
[2020-12-05 03:16] LABS: ALT (SGPT) 11 U/L (8-55); AST (SGOT) 12 U/L (5-34); Albumin 2.8 g/dL (3.4-4.8); Alkaline Phosphatase 74 U/L (40-110); Anion Gap 18 mmol/L (10-20); BUN (Urea Nitrogen) 14 mg/dL (9.8-20.1); Bilirubin, Total 0.5 mg/dL (0.2-1.2); Calc. Creatinine Clearance 0 mL/min (70-130); Calcium 8.4 mg/dL (7.8-10.44); Carbon Dioxide 13 mmol/L (23-31); Chloride 110 mmol/L (98-107); Globulin 2.1 g/dL (2.4-3.5); Glucose 136 mg/dL (83-110); Potassium 4.2 mmol/L (3.5-5.1); Protein, Total 4.9 g/dL (5.8-8.1); Sodium 137 mmol/L (136-145)
[2020-12-05 05:47] LABS: Troponin I 0.024 ng/mL (< 0.028)
[2020-12-05] MEDS ORDERED: Furosemide 40 MG/4 ML VIAL ONE (05:49)
[2020-12-05] MEDS ORDERED: Sodium Chloride 0.9% (PF) 10 ML VIAL FS PRN (07:00)
[2020-12-05] MEDS: Acetaminophen 325 MG TAB PO PRN (07:25)
[2020-12-05] MEDS ORDERED: Acetaminophen 325 MG TAB ONE (07:27)
[2020-12-05] MEDS ORDERED: Sodium Chloride 0.9% 1,000 ML IV SCH (08:30)
[2020-12-05] MEDS ORDERED: Pantoprazole 40 MG VIAL ONE (08:42)
[2020-12-05] MEDS ORDERED: Cefepime 2 GM VIAL ONE (08:42)
[2020-12-05] MEDS: Cefepime 2 GM in Sodium Chloride 0.9% 100 ML IVPB SCH (08:44)
[2020-12-05] MEDS: Pantoprazole 40 MG VIAL IVP SCH (08:44)
[2020-12-05] MEDS ORDERED: Enoxaparin Sodium 40 MG/0.4 ML SYRINGE SC SCH (09:00)
[2020-12-05] MEDS ORDERED: Norepinephrine 8 MG/0.9% NS 250 ML ONE ×2 (09:06→19:27)
[2020-12-05] MEDS: Lactated Ringer's 1,000 ML IV SCH (16:15)
[2020-12-05 17:55] LABS: Lactic Acid 3.2 mmol/L (0.5-2.2)
[2020-12-05] MEDS ORDERED: Morphine 4 MG/ML VIAL ONE (18:49)
[2020-12-05] MEDS: Morphine 2 MG/ML VIAL SLOW IVP PRN (19:00)
[2020-12-06] MEDS ORDERED: Norepinephrine 8 MG/0.9% NS 0 ML ONE (01:11)
[2020-12-06] MEDS: Norepinephrine 8 MG/0.9% NS 250 ML IVPB SCH (01:43)
[2020-12-06] MEDS ORDERED: Pantoprazole 40 MG VIAL ONE ×2 (01:45→11:18)
[2020-12-06] MEDS ORDERED: Vancomycin 1 GM/200 ML BAG ONE (01:45)
[2020-12-06] MEDS: Vancomycin 1 GM in Premix Bag 1 BAG IVPB SCH ×2 (01:49→21:11)
[2020-12-06] MEDS: Pantoprazole 40 MG VIAL IVP SCH ×3 (01:49→21:11)
[2020-12-06] MEDS ORDERED: methylPREDNISolone Sod Succ 40 MG VIAL ONE ×3 (01:51→13:38)
[2020-12-06] MEDS: methylPREDNISolone Sod Succ 40 MG VIAL IVP SCH ×4 (01:56→17:35)
[2020-12-06] MEDS ORDERED: metroNIDAZOLE 500 MG/100 ML BAG ONE (02:03)
[2020-12-06] MEDS: metroNIDAZOLE 500 MG in Premix Bag 1 BAG IVPB SCH ×3 (02:05→17:49)
[2020-12-06] MEDS: Lactated Ringer's 1,000 ML IV SCH (05:00)
[2020-12-06 07:51] LABS: Hemoglobin 11.8 g/dL (12.0-16.0); Mean Corpuscular HGB CONC 32.8 g/dL (32.0-36.0); Mean Corpuscular Hemoglobin 28.6 pg (27.0-31.0); Mean Corpuscular Volume 87.3 fL (78.0-98.0); Mean Platelet Volume 6.9 fL (7.4-10.4); Platelet Count 303 thou/uL (130-400); RBC Distribution Width 15.4 % (11.5-14.5); Red Blood Cell (RBC) Count 4.12 mill/uL (4.20-5.40); White Blood Cell (WBC) Count 26.6 thou/uL (4.8-10.8)
[2020-12-06 08:06] LABS: Lactic Acid 2.3 mmol/L (0.5-2.2)
[2020-12-06] MEDS ORDERED: Morphine 4 MG/ML VIAL ONE ×3 (08:11→13:38)
[2020-12-06 08:13] LABS: ALT (SGPT) 17 U/L (8-55); AST (SGOT) 24 U/L (5-34); Albumin 2.8 g/dL (3.4-4.8); Alkaline Phosphatase 68 U/L (40-110); Anion Gap 12 mmol/L (10-20); BUN (Urea Nitrogen) 25 mg/dL (9.8-20.1); Bilirubin, Total 0.4 mg/dL (0.2-1.2); Calc. Creatinine Clearance 64 mL/min (70-130); Calcium 7.8 mg/dL (7.8-10.44); Carbon Dioxide 18 mmol/L (23-31); Chloride 113 mmol/L (98-107); Globulin 2.1 g/dL (2.4-3.5); Glucose 145 mg/dL (83-110); Potassium 4.3 mmol/L (3.5-5.1); Protein, Total 4.9 g/dL (5.8-8.1); Sodium 139 mmol/L (136-145)
[2020-12-06 08:19] LABS: Vancomycin, Trough 18.2 ug/mL
[2020-12-06] MEDS: Morphine 2 MG/ML VIAL SLOW IVP PRN ×3 (08:20→13:46)
[2020-12-06 08:25] LABS: Band 66 % (5-11); Lymphocytes 2 % (21-51); MDiff Complete? YES; Metamyelocyte 1 % (0-0); Monocytes 2 % (0-10); Neutrophil 29 % (42-75); Platelet Morphology Comment Appears Adequate; Polychromasia SLIGHT = 2-3 cells (100X) (0-2/hpf); Vacuoles SLIGHT
[2020-12-06] MEDS: Cefepime 2 GM in Sodium Chloride 0.9% 100 ML IVPB SCH (09:28)
[2020-12-06] MEDS ORDERED: Lorazepam 2 MG/ML VIAL SLOW IVP PRN (10:06)
[2020-12-06] MEDS: Acetaminophen 325 MG TAB PO PRN ×2 (10:17→15:40)
[2020-12-06] MEDS ORDERED: Norepinephrine 8 MG/0.9% NS 250 ML ONE ×2 (10:30→10:31)
[2020-12-06] MEDS ORDERED: Acetaminophen 325 MG TAB ONE (15:28)
[2020-12-06] MEDS: Morphine 4 MG/ML VIAL SLOW IVP PRN ×2 (17:24→21:52)
[2020-12-06 21:26] LABS: Vancomycin, Trough 9.5 ug/mL
[2020-12-07] MEDS: Lactated Ringer's 1,000 ML IV SCH ×4 (00:46→18:56)
[2020-12-07] MEDS: methylPREDNISolone Sod Succ 40 MG VIAL IVP SCH ×4 (00:47→17:05)
[2020-12-07] MEDS: metroNIDAZOLE 500 MG in Premix Bag 1 BAG IVPB SCH ×3 (02:34→17:06)
[2020-12-07] MEDS: Morphine 4 MG/ML VIAL SLOW IVP PRN ×4 (06:00→22:15)
[2020-12-07 06:24] LABS: ALT (SGPT) 17 U/L (8-55); AST (SGOT) 28 U/L (5-34); Albumin 2.6 g/dL (3.4-4.8); Alkaline Phosphatase 65 U/L (40-110); Anion Gap 14 mmol/L (10-20); BUN (Urea Nitrogen) 24 mg/dL (9.8-20.1); Bilirubin, Total 0.3 mg/dL (0.2-1.2); Calc. Creatinine Clearance 75 mL/min (70-130); Calcium 7.8 mg/dL (7.8-10.44); Carbon Dioxide 14 mmol/L (23-31); Chloride 113 mmol/L (98-107); Globulin 2.3 g/dL (2.4-3.5); Glucose 116 mg/dL (83-110); Potassium 5.1 mmol/L (3.5-5.1); Protein, Total 4.9 g/dL (5.8-8.1); Sodium 136 mmol/L (136-145)
[2020-12-07 08:09] LABS: Hemoglobin 10.7 g/dL (12.0-16.0); Mean Corpuscular HGB CONC 34.6 g/dL (32.0-36.0); Mean Corpuscular Hemoglobin 29.9 pg (27.0-31.0); Mean Corpuscular Volume 86.3 fL (78.0-98.0); Mean Platelet Volume 7.8 fL (7.4-10.4); Platelet Count 198 thou/uL (130-400); RBC Distribution Width 15.5 % (11.5-14.5); Red Blood Cell (RBC) Count 3.59 mill/uL (4.20-5.40); White Blood Cell (WBC) Count 19.6 thou/uL (4.8-10.8)
[2020-12-07] MEDS: Cefepime 2 GM in Sodium Chloride 0.9% 100 ML IVPB SCH (08:22)
[2020-12-07] MEDS: Pantoprazole 40 MG VIAL IVP SCH ×2 (08:23→20:42)
[2020-12-07 09:00] LABS: Band 40 % (5-11); Lymphocytes 6 % (21-51); MDiff Complete? YES; Monocytes 2 % (0-10); Neutrophil 52 % (42-75); Platelet Morphology Comment Appears Adequate; Polychromasia SLIGHT = 2-3 cells (100X) (0-2/hpf)
[2020-12-07 11:54] LABS: Potassium 4.9 mmol/L (3.5-5.1)
[2020-12-07] MEDS: HYDROcodone/Acetaminophen 5/325 mg Tablet PO PRN ×2 (16:17→20:40)
[2020-12-07] MEDS: Sodium Bicarbonate Tab 325 MG TAB PO SCH (17:06)
[2020-12-07 20:28] LABS: Vancomycin, Trough 11.2 ug/mL
[2020-12-07] MEDS: Docusate 100 MG CAP PO SCH (20:41)
[2020-12-07] MEDS: Vancomycin 1 GM in Premix Bag 1 BAG IVPB SCH (20:42)
[2020-12-08] MEDS: methylPREDNISolone Sod Succ 40 MG VIAL IVP SCH ×4 (00:47→20:51)
[2020-12-08] MEDS: HYDROcodone/Acetaminophen 5/325 mg Tablet PO PRN ×2 (02:20→13:58)
[2020-12-08] MEDS: metroNIDAZOLE 500 MG in Premix Bag 1 BAG IVPB SCH ×3 (02:20→17:26)
[2020-12-08] MEDS: Morphine 4 MG/ML VIAL SLOW IVP PRN (03:29)
[2020-12-08 06:23] LABS: ALT (SGPT) 15 U/L (8-55); AST (SGOT) 25 U/L (5-34); Albumin 2.6 g/dL (3.4-4.8); Alkaline Phosphatase 58 U/L (40-110); Anion Gap 11 mmol/L (10-20); BUN (Urea Nitrogen) 20 mg/dL (9.8-20.1); Bilirubin, Total 0.4 mg/dL (0.2-1.2); Calc. Creatinine Clearance 84 mL/min (70-130); Calcium 8.1 mg/dL (7.8-10.44); Carbon Dioxide 18 mmol/L (23-31); Chloride 111 mmol/L (98-107); Globulin 1.9 g/dL (2.4-3.5); Glucose 133 mg/dL (83-110); Potassium 4.1 mmol/L (3.5-5.1); Protein, Total 4.5 g/dL (5.8-8.1); Sodium 136 mmol/L (136-145)
[2020-12-08 06:33] LABS: Hemoglobin 10.1 g/dL (12.0-16.0); Mean Corpuscular HGB CONC 33.3 g/dL (32.0-36.0); Mean Corpuscular Hemoglobin 28.9 pg (27.0-31.0); Mean Corpuscular Volume 86.7 fL (78.0-98.0); Mean Platelet Volume 7.7 fL (7.4-10.4); Platelet Count 216 thou/uL (130-400); RBC Distribution Width 15.5 % (11.5-14.5); Red Blood Cell (RBC) Count 3.49 mill/uL (4.20-5.40); White Blood Cell (WBC) Count 15.6 thou/uL (4.8-10.8)
[2020-12-08 07:47] LABS: Band 28 % (5-11); Lymphocytes 4 % (21-51); MDiff Complete? YES; Monocytes 3 % (0-10); Neutrophil 65 % (42-75); Platelet Morphology Comment Appears Adequate; Polychromasia SLIGHT = 2-3 cells (100X) (0-2/hpf)
[2020-12-08] MEDS: Sodium Bicarbonate Tab 325 MG TAB PO SCH ×3 (08:45→17:26)
[2020-12-08] MEDS: Cefepime 2 GM in Sodium Chloride 0.9% 100 ML IVPB SCH (08:45)
[2020-12-08] MEDS: Docusate 100 MG CAP PO SCH ×2 (08:45→20:50)
[2020-12-08] MEDS: Pantoprazole 40 MG VIAL IVP SCH ×2 (08:46→20:51)
[2020-12-08] MEDS ORDERED: Polyethylene Glycol 3350 17 GM Packet PO SCH (12:30)
[2020-12-08] MEDS ORDERED: Polyethylene Glycol 3350 17 GM Packet PO PRN (13:33)
[2020-12-08] MEDS ORDERED: Vancomycin 1.5 GRAM/300 ML BAG 1.5 GM in Premix Bag 1 BAG IVPB SCH (15:00)
[2020-12-08] MEDS: Lactated Ringer's 1,000 ML IV SCH (18:28)
[2020-12-08] MEDS ORDERED: Saccharomyces boulardii 250 MG CAP PO SCH (23:45)
[2020-12-09] MEDS: methylPREDNISolone Sod Succ 40 MG VIAL IVP SCH ×3 (03:14→20:59)
[2020-12-09] MEDS: metroNIDAZOLE 500 MG in Premix Bag 1 BAG IVPB SCH ×3 (03:14→17:11)
[2020-12-09 06:39] LABS: Anion Gap 13 mmol/L (10-20); BUN (Urea Nitrogen) 26 mg/dL (9.8-20.1); Calc. Creatinine Clearance 98 mL/min (70-130); Carbon Dioxide 19 mmol/L (23-31); Chloride 110 mmol/L (98-107); Glucose 117 mg/dL (83-110); Potassium 3.8 mmol/L (3.5-5.1); Sodium 138 mmol/L (136-145)
[2020-12-09] MEDS: Cefepime 2 GM in Sodium Chloride 0.9% 100 ML IVPB SCH (09:00)
[2020-12-09] MEDS: Pantoprazole 40 MG VIAL IVP SCH ×2 (09:00→20:52)
[2020-12-09] MEDS: Sodium Bicarbonate Tab 325 MG TAB PO SCH ×3 (09:00→17:12)
[2020-12-09] MEDS: Docusate 100 MG CAP PO SCH ×2 (10:06→20:51)
[2020-12-09] MEDS: HYDROcodone/Acetaminophen 5/325 mg Tablet PO PRN ×3 (11:36→21:13)
[2020-12-09] MEDS: Atorvastatin Calcium 20 MG TAB PO SCH (20:51)
[2020-12-09] MEDS: Saccharomyces boulardii 250 MG CAP PO SCH (20:51)
[2020-12-09] MEDS: Morphine 4 MG/ML VIAL SLOW IVP PRN (22:42)
[2020-12-10] MEDS: metroNIDAZOLE 500 MG in Premix Bag 1 BAG IVPB SCH ×2 (02:59→09:35)
[2020-12-10] MEDS: methylPREDNISolone Sod Succ 40 MG VIAL IVP SCH ×2 (04:14→15:36)
[2020-12-10] MEDS: HYDROcodone/Acetaminophen 5/325 mg Tablet PO PRN ×3 (04:15→20:38)
[2020-12-10] MEDS: Morphine 4 MG/ML VIAL SLOW IVP PRN ×3 (05:46→22:39)
[2020-12-10 06:03] LABS: Hemoglobin 10.7 g/dL (12.0-16.0); Mean Corpuscular HGB CONC 33.7 g/dL (32.0-36.0); Mean Corpuscular Hemoglobin 29.1 pg (27.0-31.0); Mean Corpuscular Volume 86.2 fL (78.0-98.0); Mean Platelet Volume 7.6 fL (7.4-10.4); Platelet Count 222 thou/uL (130-400); RBC Distribution Width 15.6 % (11.5-14.5); Red Blood Cell (RBC) Count 3.68 mill/uL (4.20-5.40); White Blood Cell (WBC) Count 12.4 thou/uL (4.8-10.8)
[2020-12-10 06:20] LABS: Anion Gap 13 mmol/L (10-20); BUN (Urea Nitrogen) 16 mg/dL (9.8-20.1); Calc. Creatinine Clearance 104 mL/min (70-130); Calcium 7.8 mg/dL (7.8-10.44); Carbon Dioxide 21 mmol/L (23-31); Chloride 107 mmol/L (98-107); Glucose 118 mg/dL (83-110); Potassium 3.5 mmol/L (3.5-5.1); Sodium 137 mmol/L (136-145)
[2020-12-10 06:27] LABS: Band 31 % (5-11); Lymphocytes 7 % (21-51); MDiff Complete? YES; Monocytes 7 % (0-10); Neutrophil 55 % (42-75)
[2020-12-10] MEDS ORDERED: Calcium Carbonate 500 MG ChewTAB PO PRN (06:45)
[2020-12-10] MEDS ORDERED: GUAIFENESIN SF SOLN 200 MG/10 ML UDCUP PO PRN (06:45)
[2020-12-10] MEDS ORDERED: Ondansetron ODT 4 MG TAB SL PRN (06:45)
[2020-12-10] MEDS ORDERED: Cepastat Lozenges 1 LOZ PO PRN (06:45)
[2020-12-10] MEDS ORDERED: Loperamide HCl 2 MG CAP PO PRN (06:45)
[2020-12-10] MEDS ORDERED: Sodium Chloride 0.65% Nasal 44 ML BOT EA NARE PRN (06:45)
[2020-12-10] MEDS ORDERED: Senokot S 8.6-50 MG TAB PO PRN (06:45)
[2020-12-10] MEDS ORDERED: Loratadine 10 MG TAB PO PRN (06:45)
[2020-12-10] MEDS ORDERED: Artificial Tear Sol 15 ML BOT EA EYE PRN (06:45)
[2020-12-10] MEDS ORDERED: Hydrocerin (Eucerin) Cream 120 gm Jar TOP PRN (06:45)
[2020-12-10] MEDS ORDERED: hydrALAZINE 20 MG/ML VIAL SLOW IVP PRN (06:45)
[2020-12-10] MEDS: Aspirin 81 mg Enteric Coated Tablet PO SCH (08:26)
[2020-12-10] MEDS: Sodium Bicarbonate Tab 325 MG TAB PO SCH ×3 (08:26→16:12)
[2020-12-10] MEDS: Clopidogrel Bisulfate 75 MG TAB PO SCH (08:27)
[2020-12-10] MEDS: Mometasone 200 MCG/Formoterol 5 MCG 120 PUFF INHALER INH SCH ×3 (08:27→18:26)
[2020-12-10] MEDS: Cefepime 2 GM in Sodium Chloride 0.9% 100 ML IVPB SCH (08:27)
[2020-12-10] MEDS: Pantoprazole 40 MG VIAL IVP SCH ×2 (08:27→20:38)
[2020-12-10] MEDS: Docusate 100 MG CAP PO SCH (09:50)
[2020-12-10] MEDS: Vancomycin HCl 25 MG/ML Oral PO SCH ×2 (12:33→18:18)
[2020-12-10] MEDS: Saccharomyces boulardii 250 MG CAP PO SCH (20:38)
[2020-12-10] MEDS: Atorvastatin Calcium 20 MG TAB PO SCH (20:38)
[2020-12-10 22:19] LABS: Troponin I 0.033 ng/mL (< 0.028)
[2020-12-10] MEDS ORDERED: Nitroglycerin 0.4 MG TAB (25 Tab Bottle) SL PRN (22:32)
[2020-12-10] MEDS ORDERED: Sodium Chloride 0.9% 1,000 ML IV SCH (22:45)
[2020-12-11] MEDS: Vancomycin HCl 25 MG/ML Oral PO SCH ×5 (00:42→23:53)
[2020-12-11 02:07] LABS: Troponin I 0.016 ng/mL (< 0.028)
[2020-12-11] MEDS: methylPREDNISolone Sod Succ 40 MG VIAL IVP SCH ×2 (04:15→16:00)
[2020-12-11] MEDS: HYDROcodone/Acetaminophen 5/325 mg Tablet PO PRN (04:15)
[2020-12-11 07:01] LABS: ALT (SGPT) 12 U/L (8-55); AST (SGOT) 19 U/L (5-34); Albumin 2.6 g/dL (3.4-4.8); Alkaline Phosphatase 53 U/L (40-110); Anion Gap 13 mmol/L (10-20); BUN (Urea Nitrogen) 14 mg/dL (9.8-20.1); Bilirubin, Total 0.5 mg/dL (0.2-1.2); Calc. Creatinine Clearance 112 mL/min (70-130); Calcium 7.5 mg/dL (7.8-10.44); Carbon Dioxide 21 mmol/L (23-31); Chloride 106 mmol/L (98-107); Globulin 1.9 g/dL (2.4-3.5); Glucose 102 mg/dL (83-110); Magnesium 1.8 mg/dL (1.6-2.6); Potassium 3.4 mmol/L (3.5-5.1); Protein, Total 4.5 g/dL (5.8-8.1); Sodium 137 mmol/L (136-145)
[2020-12-11 07:11] LABS: Phosphorus 1.8 mg/dL (2.3-4.7)
[2020-12-11] MEDS ORDERED: Potassium Phosphate 15 MMOL in Sodium Chloride 0.9% 250 ML 250 ML IVPB SCH (07:30)
[2020-12-11 07:40] LABS: Band 48 % (5-11); Hemoglobin 10.9 g/dL (12.0-16.0); Lymphocytes 6 % (21-51); MDiff Complete? YES; Mean Corpuscular HGB CONC 33.9 g/dL (32.0-36.0); Mean Corpuscular Hemoglobin 29.1 pg (27.0-31.0); Mean Corpuscular Volume 85.9 fL (78.0-98.0); Mean Platelet Volume 7.7 fL (7.4-10.4); Monocytes 2 % (0-10); Neutrophil 44 % (42-75); Platelet Count 225 thou/uL (130-400); RBC Distribution Width 15.4 % (11.5-14.5); Red Blood Cell (RBC) Count 3.75 mill/uL (4.20-5.40); White Blood Cell (WBC) Count 15.2 thou/uL (4.8-10.8)
[2020-12-11] MEDS: Mometasone 200 MCG/Formoterol 5 MCG 120 PUFF INHALER INH SCH ×2 (08:32→18:47)
[2020-12-11] MEDS: Clopidogrel Bisulfate 75 MG TAB PO SCH (08:45)
[2020-12-11] MEDS: Sodium Bicarbonate Tab 325 MG TAB PO SCH ×2 (08:45→20:22)
[2020-12-11] MEDS: Aspirin 81 mg Enteric Coated Tablet PO SCH (08:45)
[2020-12-11] MEDS: HYDROcodone/Acetaminophen 7.5/325 mg Tablet PO PRN ×2 (09:15→20:43)
[2020-12-11] MEDS: Saccharomyces boulardii 250 MG CAP PO SCH (20:22)
[2020-12-11] MEDS: Atorvastatin Calcium 20 MG TAB PO SCH (20:22)
[2020-12-12] MEDS: HYDROcodone/Acetaminophen 7.5/325 mg Tablet PO PRN ×4 (01:57→20:37)
[2020-12-12] MEDS: methylPREDNISolone Sod Succ 40 MG VIAL IVP SCH ×2 (03:51→16:24)
[2020-12-12] MEDS: Vancomycin HCl 25 MG/ML Oral PO SCH ×4 (07:07→20:39)
[2020-12-12 07:16] LABS: Hemoglobin 10.9 g/dL (12.0-16.0); Mean Corpuscular HGB CONC 33.3 g/dL (32.0-36.0); Mean Corpuscular Hemoglobin 28.8 pg (27.0-31.0); Mean Corpuscular Volume 86.4 fL (78.0-98.0); Mean Platelet Volume 7.5 fL (7.4-10.4); Platelet Count 263 thou/uL (130-400); RBC Distribution Width 15.5 % (11.5-14.5); Red Blood Cell (RBC) Count 3.81 mill/uL (4.20-5.40); White Blood Cell (WBC) Count 14.7 thou/uL (4.8-10.8)
[2020-12-12 07:32] LABS: Anion Gap 19 mmol/L (10-20); BUN (Urea Nitrogen) 11 mg/dL (9.8-20.1); Calc. Creatinine Clearance 113 mL/min (70-130); Calcium 7.7 mg/dL (7.8-10.44); Carbon Dioxide 19 mmol/L (23-31); Chloride 103 mmol/L (98-107); Glucose 86 mg/dL (83-110); Potassium 3.7 mmol/L (3.5-5.1); Sodium 137 mmol/L (136-145)
[2020-12-12 07:36] LABS: Phosphorus 2.5 mg/dL (2.3-4.7)
[2020-12-12 07:42] LABS: Anisocytosis SLIGHT = 6-15 cells (100X) (0-5/hpf); Band 21 % (5-11); Lymphocytes 1 % (21-51); MDiff Complete? YES; Metamyelocyte 1 % (0-0); Monocytes 6 % (0-10); Myelocyte 1 % (0-0); Neutrophil 70 % (42-75); Platelet Morphology Comment Appears Adequate; Polychromasia SLIGHT = 2-3 cells (100X) (0-2/hpf)
[2020-12-12] MEDS: Mometasone 200 MCG/Formoterol 5 MCG 120 PUFF INHALER INH SCH ×2 (07:48→18:08)
[2020-12-12] MEDS: Sodium Bicarbonate Tab 325 MG TAB PO SCH ×2 (09:01→20:39)
[2020-12-12] MEDS: Clopidogrel Bisulfate 75 MG TAB PO SCH (09:01)
[2020-12-12] MEDS: Aspirin 81 mg Enteric Coated Tablet PO SCH (09:01)
[2020-12-12 12:35] LABS: SARS-CoV-2 PCR by NAA Not Detected (NotDetected)
[2020-12-12] MEDS: Saccharomyces boulardii 250 MG CAP PO SCH (20:39)
[2020-12-12] MEDS: Atorvastatin Calcium 20 MG TAB PO SCH (20:40)
[2020-12-13] MEDS: HYDROcodone/Acetaminophen 7.5/325 mg Tablet PO PRN ×5 (01:58→20:56)
[2020-12-13] MEDS: Vancomycin HCl 25 MG/ML Oral PO SCH ×4 (04:50→20:55)
[2020-12-13] MEDS: methylPREDNISolone Sod Succ 40 MG VIAL IVP SCH ×2 (04:51→15:46)
[2020-12-13] MEDS: Mometasone 200 MCG/Formoterol 5 MCG 120 PUFF INHALER INH SCH ×2 (06:18→07:39)
[2020-12-13] MEDS: Clopidogrel Bisulfate 75 MG TAB PO SCH (08:17)
[2020-12-13] MEDS: Aspirin 81 mg Enteric Coated Tablet PO SCH (08:17)
[2020-12-13] MEDS: Sodium Bicarbonate Tab 325 MG TAB PO SCH ×2 (08:17→20:55)
[2020-12-13] MEDS: Atorvastatin Calcium 20 MG TAB PO SCH (20:56)
[2020-12-13] MEDS: Saccharomyces boulardii 250 MG CAP PO SCH (20:56)
[2020-12-14] MEDS: HYDROcodone/Acetaminophen 7.5/325 mg Tablet PO PRN ×5 (01:45→23:53)
[2020-12-14] MEDS: methylPREDNISolone Sod Succ 40 MG VIAL IVP SCH ×2 (03:15→15:03)
[2020-12-14] MEDS: Vancomycin HCl 25 MG/ML Oral PO SCH ×4 (03:15→19:40)
[2020-12-14] MEDS: Mometasone 200 MCG/Formoterol 5 MCG 120 PUFF INHALER INH SCH ×2 (05:51→18:14)
[2020-12-14] MEDS: Sodium Bicarbonate Tab 325 MG TAB PO SCH ×2 (08:24→19:39)
[2020-12-14] MEDS: Enoxaparin Sodium 40 MG/0.4 ML SYRINGE SC SCH (08:24)
[2020-12-14] MEDS: Clopidogrel Bisulfate 75 MG TAB PO SCH (08:24)
[2020-12-14] MEDS: Aspirin 81 mg Enteric Coated Tablet PO SCH (08:24)
[2020-12-14] MEDS ORDERED: Furosemide 40 MG/4 ML VIAL SLOW IVP SCH (10:15)
[2020-12-14 11:30] LABS: Hemoglobin 10.7 g/dL (12.0-16.0); Mean Corpuscular HGB CONC 33.5 g/dL (32.0-36.0); Mean Corpuscular Hemoglobin 29.1 pg (27.0-31.0); Platelet Count 405 thou/uL (130-400); RBC Distribution Width 15.3 % (11.5-14.5); Red Blood Cell (RBC) Count 3.69 mill/uL (4.20-5.40); White Blood Cell (WBC) Count 16.4 thou/uL (4.8-10.8)
[2020-12-14 11:51] LABS: Anion Gap 18 mmol/L (10-20); BUN (Urea Nitrogen) 14 mg/dL (9.8-20.1); Calc. Creatinine Clearance 109 mL/min (70-130); Calcium 8.2 mg/dL (7.8-10.44); Carbon Dioxide 20 mmol/L (23-31); Chloride 101 mmol/L (98-107); Glucose 93 mg/dL (83-110); Potassium 4.4 mmol/L (3.5-5.1); Sodium 135 mmol/L (136-145)
[2020-12-14 12:43] LABS: Band 21 % (5-11); Lymphocytes 6 % (21-51); MDiff Complete? YES; Metamyelocyte 1 % (0-0); Neutrophil 72 % (42-75); Platelet Morphology Comment Appears Increased; Polychromasia SLIGHT = 2-3 cells (100X) (0-2/hpf)
[2020-12-14] MEDS ORDERED: Piperacillin/Tazobactam 3.375 GM in Sodium Chloride 0.9% 100 ML IVPB SCH ×2 (18:45→19:00)
[2020-12-14] MEDS: Saccharomyces boulardii 250 MG CAP PO SCH (19:37)
[2020-12-14] MEDS: Atorvastatin Calcium 20 MG TAB PO SCH (19:39)
[2020-12-14] MEDS: Piperacillin/Tazobactam 3.375 GM in Sodium Chloride 0.9% 100 ML IVPB SCH (23:52)
[2020-12-15] MEDS: Vancomycin HCl 25 MG/ML Oral PO SCH ×3 (02:31→15:34)
[2020-12-15] MEDS: HYDROcodone/Acetaminophen 7.5/325 mg Tablet PO PRN ×2 (04:35→17:46)
[2020-12-15] MEDS: Sodium Bicarbonate Tab 325 MG TAB PO SCH ×2 (08:34→23:39)
[2020-12-15] MEDS: Clopidogrel Bisulfate 75 MG TAB PO SCH (08:34)
[2020-12-15] MEDS: Piperacillin/Tazobactam 3.375 GM in Sodium Chloride 0.9% 100 ML IVPB SCH ×2 (08:35→15:34)
[2020-12-15] MEDS: methylPREDNISolone Sod Succ 40 MG VIAL IVP SCH (08:35)
[2020-12-15] MEDS: Aspirin 81 mg Enteric Coated Tablet PO SCH (08:36)
[2020-12-15] MEDS: Enoxaparin Sodium 40 MG/0.4 ML SYRINGE SC SCH (08:36)
[2020-12-15] MEDS: Mometasone 200 MCG/Formoterol 5 MCG 120 PUFF INHALER INH SCH ×2 (08:37→19:24)
[2020-12-15] MEDS ORDERED: Iopamidol-370 76% 500 ML 1 ML ONE (09:24)
[2020-12-15 12:10] LABS: #Eosinphils 0.1 thou/uL (0.0-0.7); #Lymphocytes 0.6 thou/uL (1.20-3.40); #Monocytes 0.7 thou/uL (0.11-0.59); #Neutrophils 15.3 thou/uL (1.40-6.50); %Basophils 0.3 % (0.0-1.0); %Eosinophils 0.5 % (0.0-10.0); %Lymphocytes 3.9 % (21.0-51.0); %Monocytes 4.1 % (0.0-10.0); %Neutrophils 91.3 % (42.0-75.0); Hemoglobin 10.4 g/dL (12.0-16.0); Mean Corpuscular HGB CONC 33.2 g/dL (32.0-36.0); Mean Corpuscular Hemoglobin 28.3 pg (27.0-31.0); Mean Corpuscular Volume 85.3 fL (78.0-98.0); Mean Platelet Volume 6.9 fL (7.4-10.4); Platelet Count 419 thou/uL (130-400); RBC Distribution Width 15.5 % (11.5-14.5); Red Blood Cell (RBC) Count 3.69 mill/uL (4.20-5.40); White Blood Cell (WBC) Count 16.7 thou/uL (4.8-10.8)
[2020-12-15 15:10] LABS: SARS-CoV-2 NAA Rapid Test Not Detected (NotDetected)
[2020-12-15] MEDS ORDERED: Pantoprazole 40 MG VIAL ONE (18:28)
[2020-12-15] MEDS ORDERED: Magnesium 5 GM/10 ML Abboject SYRINGE ONE (18:40)
[2020-12-15] MEDS ORDERED: Pantoprazole 80 MG in Sodium Chloride 0.9% 100 ML IVPB SCH (18:51)
[2020-12-15 18:58] LABS: #Lymphocytes 0.9 thou/uL (1.20-3.40); #Monocytes 0.9 thou/uL (0.11-0.59); %Basophils 0.1 % (0.0-1.0); %Eosinophils 0.2 % (0.0-10.0); %Lymphocytes 7.2 % (21.0-51.0); %Neutrophils 84.6 % (42.0-75.0); Hemoglobin 7.6 g/dL (12.0-16.0); Mean Corpuscular HGB CONC 33.1 g/dL (32.0-36.0); Mean Corpuscular Volume 87.6 fL (78.0-98.0); Platelet Count 356 thou/uL (130-400); RBC Distribution Width 15.4 % (11.5-14.5); Red Blood Cell (RBC) Count 2.63 mill/uL (4.20-5.40); White Blood Cell (WBC) Count 11.8 thou/uL (4.8-10.8)
[2020-12-15 19:11] LABS: INR-International Normal Ratio 1.3; Prothrombin Time 16.4 sec (12.0-14.7)
[2020-12-15 19:18] LABS: Magnesium 1.6 mg/dL (1.6-2.6)
[2020-12-15 19:19] LABS: ALT (SGPT) 13 U/L (8-55); AST (SGOT) 18 U/L (5-34); Albumin 2.2 g/dL (3.4-4.8); Alkaline Phosphatase 42 U/L (40-110); Anion Gap 17 mmol/L (10-20); BUN (Urea Nitrogen) 14 mg/dL (9.8-20.1); Bilirubin, Total 0.4 mg/dL (0.2-1.2); Calc. Creatinine Clearance 116 mL/min (70-130); Calcium 7.2 mg/dL (7.8-10.44); Carbon Dioxide 20 mmol/L (23-31); Chloride 103 mmol/L (98-107); Globulin 1.5 g/dL (2.4-3.5); Glucose 88 mg/dL (83-110); Potassium 3.7 mmol/L (3.5-5.1); Protein, Total 3.7 g/dL (5.8-8.1); Sodium 136 mmol/L (136-145)
[2020-12-15 19:25] LABS: Lactic Acid 0.9 mmol/L (0.5-2.2)
[2020-12-15 19:55] LABS: Actual Bicarbonate (HCO3a) 20.3 mEq/L (22-28); Base Excess (BEa) -2.2 mEq/L (-2.0 to +3.0); CO2 Tension 26.6 mmHg (35.0-45.0); Calcium, Ionized (arterial) 1.09 mmol/L (1.12-1.30); Carboxyhemoglobin (COHb) 1.1 gm% (0.0-3.0); Hemoglobin (Hb) 8.5 g/dL (12.0-16.0); O2 Tension (PaO2), arterial 62.7 mmHg (> 70.0); Potassium - ABG Lab 3.69 mmol/L (3.70-5.30)
[2020-12-15] MEDS ORDERED: Protamine Sulfate 50 MG/5 ML VIAL SLOW IVP SCH (21:00)
[2020-12-15] MEDS ORDERED: Calcium Chloride 1 GM/10 ML Abboject SYRINGE ONE (21:50)
[2020-12-15] MEDS ORDERED: PROPOFOL 200 MG/20 ML VIAL ONE (21:50)
[2020-12-15] MEDS ORDERED: PHENYLEPHRINE-NS 100 MCG/ML 10 ML SYRINGE ONE (21:50)
[2020-12-15] MEDS ORDERED: Lidocaine 1% PF 5 ML VIAL ONE (21:50)
[2020-12-15] MEDS ORDERED: Ondansetron PF 4 MG/2 ML Vial ONE (21:50)
[2020-12-15] MEDS: Saccharomyces boulardii 250 MG CAP PO SCH (23:40)
[2020-12-15] MEDS: Atorvastatin Calcium 20 MG TAB PO SCH (23:41)
[2020-12-16] MEDS: Vancomycin HCl 25 MG/ML Oral PO SCH ×5 (00:35→21:14)
[2020-12-16] MEDS: Piperacillin/Tazobactam 3.375 GM in Sodium Chloride 0.9% 100 ML IVPB SCH ×4 (00:40→23:47)
[2020-12-16] MEDS: Melatonin 3 MG TAB PO PRN (03:12)
[2020-12-16 05:37] LABS: Anion Gap 20 mmol/L (10-20); BUN (Urea Nitrogen) 17 mg/dL (9.8-20.1); Calc. Creatinine Clearance 102 mL/min (70-130); Calcium 8.1 mg/dL (7.8-10.44); Carbon Dioxide 19 mmol/L (23-31); Chloride 102 mmol/L (98-107); Glucose 73 mg/dL (83-110); Potassium 3.6 mmol/L (3.5-5.1); Sodium 137 mmol/L (136-145)
[2020-12-16 05:44] LABS: Band 23 % (5-11); Hemoglobin 11.7 g/dL (12.0-16.0); Hypochromia SLIGHT = 6-15 cells (100X) (0-5/hpf); Lymphocytes 16 % (21-51); MDiff Complete? YES; Mean Corpuscular Hemoglobin 29.7 pg (27.0-31.0); Mean Corpuscular Volume 87.2 fL (78.0-98.0); Mean Platelet Volume 7.3 fL (7.4-10.4); Monocytes 12 % (0-10); Neutrophil 48 % (42-75); Platelet Count 290 thou/uL (130-400); Platelet Morphology Comment Appears Adequate; RBC Distribution Width 15.1 % (11.5-14.5); Reactive Lymphocytes 1 % (0-10); Red Blood Cell (RBC) Count 3.96 mill/uL (4.20-5.40); White Blood Cell (WBC) Count 15.4 thou/uL (4.8-10.8)
[2020-12-16] MEDS: Mometasone 200 MCG/Formoterol 5 MCG 120 PUFF INHALER INH SCH ×2 (07:27→18:32)
[2020-12-16] MEDS: methylPREDNISolone Sod Succ 40 MG VIAL IVP SCH (09:57)
[2020-12-16] MEDS: Sodium Bicarbonate Tab 325 MG TAB PO SCH ×2 (09:57→21:13)
[2020-12-16] MEDS: HYDROcodone/Acetaminophen 7.5/325 mg Tablet PO PRN ×2 (10:06→23:44)
[2020-12-16] MEDS: Sodium Chloride 0.9% 1,000 ML IV SCH (10:07)
[2020-12-16] MEDS: Saccharomyces boulardii 250 MG CAP PO SCH (21:13)
[2020-12-16] MEDS: Atorvastatin Calcium 20 MG TAB PO SCH (21:13)
[2020-12-17] MEDS: Sodium Chloride 0.9% 1,000 ML IV SCH ×3 (01:38→23:20)
[2020-12-17] MEDS: Pantoprazole 80 MG, Admixture Fee 1 EACH in Sodium Chloride 0.9% 100 ML IVPB SCH ×3 (02:02→21:04)
[2020-12-17] MEDS: Vancomycin HCl 25 MG/ML Oral PO SCH ×4 (03:58→20:50)
[2020-12-17 04:42] LABS: #Lymphocytes 1.3 thou/uL (1.20-3.40); #Neutrophils 8.6 thou/uL (1.40-6.50); %Basophils 0.1 % (0.0-1.0); %Eosinophils 0.1 % (0.0-10.0); %Monocytes 9.2 % (0.0-10.0); %Neutrophils 78.6 % (42.0-75.0); Hemoglobin 9.8 g/dL (12.0-16.0); Mean Corpuscular HGB CONC 35.5 g/dL (32.0-36.0); Mean Corpuscular Hemoglobin 30.7 pg (27.0-31.0); Mean Corpuscular Volume 86.4 fL (78.0-98.0); Mean Platelet Volume 7.1 fL (7.4-10.4); Platelet Count 293 thou/uL (130-400); RBC Distribution Width 15.2 % (11.5-14.5); Red Blood Cell (RBC) Count 3.18 mill/uL (4.20-5.40)
[2020-12-17 05:01] LABS: Anion Gap 16 mmol/L (10-20); BUN (Urea Nitrogen) 15 mg/dL (9.8-20.1); Calc. Creatinine Clearance 108 mL/min (70-130); Calcium 7.6 mg/dL (7.8-10.44); Carbon Dioxide 22 mmol/L (23-31); Chloride 102 mmol/L (98-107); Glucose 96 mg/dL (83-110); Potassium 3.3 mmol/L (3.5-5.1); Sodium 137 mmol/L (136-145)
[2020-12-17] MEDS: Piperacillin/Tazobactam 3.375 GM in Sodium Chloride 0.9% 100 ML IVPB SCH ×3 (06:10→23:21)
[2020-12-17] MEDS ORDERED: Potassium Chloride 20 MEQ TAB PO SCH ×2 (06:15→16:00)
[2020-12-17] MEDS: Mometasone 200 MCG/Formoterol 5 MCG 120 PUFF INHALER INH SCH ×2 (07:39→19:05)
[2020-12-17] MEDS: Sodium Bicarbonate Tab 325 MG TAB PO SCH ×2 (09:42→20:44)
[2020-12-17] MEDS: methylPREDNISolone Sod Succ 40 MG VIAL IVP SCH (09:42)
[2020-12-17] MEDS: Acetaminophen 325 MG TAB PO PRN (10:21)
[2020-12-17] MEDS ORDERED: Electrolyte Replacement Protocol 1 EACH FS ONE (11:45)
[2020-12-17] MEDS ORDERED: Electrolyte Replacement Protocol FS PRN (12:00)
[2020-12-17 12:38] LABS: Potassium 3.4 mmol/L (3.5-5.1)
[2020-12-17] MEDS: HYDROcodone/Acetaminophen 7.5/325 mg Tablet PO PRN (15:40)
[2020-12-17] MEDS: Saccharomyces boulardii 250 MG CAP PO SCH (20:45)
[2020-12-17] MEDS: Atorvastatin Calcium 20 MG TAB PO SCH (20:45)
[2020-12-17 20:57] LABS: Potassium 3.9 mmol/L (3.5-5.1)
[2020-12-17] MEDS ORDERED: Magnesium 2 GM/50 ML 2 GM in Premix Bag 1 BAG IVPB SCH (23:15)
[2020-12-18] MEDS: Vancomycin HCl 25 MG/ML Oral PO SCH ×4 (02:49→21:53)
[2020-12-18 04:42] LABS: #Lymphocytes 0.9 thou/uL (1.20-3.40); #Monocytes 0.6 thou/uL (0.11-0.59); #Neutrophils 6.5 thou/uL (1.40-6.50); %Basophils 0.1 % (0.0-1.0); %Eosinophils 0.3 % (0.0-10.0); %Lymphocytes 10.7 % (21.0-51.0); %Monocytes 7.5 % (0.0-10.0); %Neutrophils 81.4 % (42.0-75.0); Hemoglobin 8.6 g/dL (12.0-16.0); Mean Corpuscular HGB CONC 35.4 g/dL (32.0-36.0); Mean Corpuscular Hemoglobin 30.8 pg (27.0-31.0); Mean Corpuscular Volume 87.1 fL (78.0-98.0); Mean Platelet Volume 7.2 fL (7.4-10.4); Platelet Count 242 thou/uL (130-400); RBC Distribution Width 15.2 % (11.5-14.5); Red Blood Cell (RBC) Count 2.77 mill/uL (4.20-5.40)
[2020-12-18 05:07] LABS: Anion Gap 11 mmol/L (10-20); BUN (Urea Nitrogen) 10 mg/dL (9.8-20.1); Calc. Creatinine Clearance 127 mL/min (70-130); Calcium 7.5 mg/dL (7.8-10.44); Carbon Dioxide 24 mmol/L (23-31); Chloride 106 mmol/L (98-107); Glucose 80 mg/dL (83-110); Potassium 3.8 mmol/L (3.5-5.1); Sodium 137 mmol/L (136-145)
[2020-12-18] MEDS: HYDROcodone/Acetaminophen 7.5/325 mg Tablet PO PRN ×3 (06:22→19:56)
[2020-12-18] MEDS: Piperacillin/Tazobactam 3.375 GM in Sodium Chloride 0.9% 100 ML IVPB SCH ×3 (06:23→21:53)
[2020-12-18] MEDS: Mometasone 200 MCG/Formoterol 5 MCG 120 PUFF INHALER INH SCH ×2 (07:31→19:23)
[2020-12-18] MEDS: Sodium Bicarbonate Tab 325 MG TAB PO SCH ×2 (09:31→19:56)
[2020-12-18] MEDS: methylPREDNISolone Sod Succ 40 MG VIAL IVP SCH (09:31)
[2020-12-18] MEDS: Sodium Chloride 0.9% 1,000 ML IV SCH (12:52)
[2020-12-18] MEDS: Pantoprazole 80 MG, Admixture Fee 1 EACH in Sodium Chloride 0.9% 100 ML IVPB SCH (17:24)
[2020-12-18] MEDS: Saccharomyces boulardii 250 MG CAP PO SCH (19:56)
[2020-12-18] MEDS: Atorvastatin Calcium 20 MG TAB PO SCH (19:56)
[2020-12-18] MEDS: Melatonin 3 MG TAB PO PRN (21:52)
[2020-12-19] MEDS: HYDROcodone/Acetaminophen 7.5/325 mg Tablet PO PRN ×4 (02:08→20:49)
[2020-12-19] MEDS: Vancomycin HCl 25 MG/ML Oral PO SCH ×4 (03:18→23:17)
[2020-12-19] MEDS: Sodium Chloride 0.9% 1,000 ML IV SCH (04:58)
[2020-12-19] MEDS: Pantoprazole 80 MG, Admixture Fee 1 EACH in Sodium Chloride 0.9% 100 ML IVPB SCH (05:00)
[2020-12-19] MEDS: Piperacillin/Tazobactam 3.375 GM in Sodium Chloride 0.9% 100 ML IVPB SCH ×3 (06:49→23:32)
[2020-12-19] MEDS: Mometasone 200 MCG/Formoterol 5 MCG 120 PUFF INHALER INH SCH ×2 (07:42→18:55)
[2020-12-19] MEDS: methylPREDNISolone Sod Succ 40 MG VIAL IVP SCH (08:25)
[2020-12-19] MEDS: Sodium Bicarbonate Tab 325 MG TAB PO SCH ×2 (08:26→20:50)
[2020-12-19] MEDS: Metoprolol Tartrate 5 MG/5 ML VIAL IVP SCH ×3 (11:32→23:32)
[2020-12-19] MEDS: Saccharomyces boulardii 250 MG CAP PO SCH (20:50)
[2020-12-19] MEDS: Atorvastatin Calcium 20 MG TAB PO SCH (20:50)
[2020-12-20] MEDS: HYDROcodone/Acetaminophen 7.5/325 mg Tablet PO PRN ×4 (02:38→21:25)
[2020-12-20] MEDS: Vancomycin HCl 25 MG/ML Oral PO SCH ×4 (04:54→21:36)
[2020-12-20] MEDS: Metoprolol Tartrate 5 MG/5 ML VIAL IVP SCH ×4 (04:54→21:27)
[2020-12-20] MEDS: Mometasone 200 MCG/Formoterol 5 MCG 120 PUFF INHALER INH SCH ×2 (07:12→18:40)
[2020-12-20] MEDS ORDERED: Furosemide 20 MG/2 ML VIAL SLOW IVP SCH ×2 (09:00→13:51)
[2020-12-20] MEDS: methylPREDNISolone Sod Succ 40 MG VIAL IVP SCH (09:11)
[2020-12-20] MEDS: Sodium Bicarbonate Tab 325 MG TAB PO SCH ×2 (09:11→21:26)
[2020-12-20] MEDS: Piperacillin/Tazobactam 3.375 GM in Sodium Chloride 0.9% 100 ML IVPB SCH ×3 (09:11→21:36)
[2020-12-20] MEDS ORDERED: Furosemide 40 MG/4 ML VIAL SLOW IVP SCH (14:30)
[2020-12-20 15:06] LABS: Actual Bicarbonate (HCO3a) 19.5 mEq/L (22-28); Carboxyhemoglobin (COHb) 0.3 gm% (0.0-3.0); Hemoglobin (Hb) 10.3 g/dL (12.0-16.0); O2 Tension (PaO2), arterial 70.5 mmHg (> 70.0); Potassium - ABG Lab 3.58 mmol/L (3.70-5.30); pH, Arterial 7.53 (7.35-7.45)
[2020-12-20 15:17] LABS: CO2 Tension 23.8 mmHg (35.0-45.0)
[2020-12-20 16:24] LABS: Anion Gap 20 mmol/L (10-20); BUN (Urea Nitrogen) 10 mg/dL (9.8-20.1); Calc. Creatinine Clearance 107 mL/min (70-130); Calcium 8.6 mg/dL (7.8-10.44); Carbon Dioxide 18 mmol/L (23-31); Chloride 102 mmol/L (98-107); Glucose 139 mg/dL (83-110); Potassium 3.5 mmol/L (3.5-5.1); Sodium 136 mmol/L (136-145)
[2020-12-20] MEDS: Atorvastatin Calcium 20 MG TAB PO SCH (21:26)
[2020-12-20] MEDS: Saccharomyces boulardii 250 MG CAP PO SCH (21:27)
[2020-12-21] MEDS: Pantoprazole 80 MG, Admixture Fee 1 EACH in Sodium Chloride 0.9% 100 ML IVPB SCH ×2 (03:10→15:10)
[2020-12-21 04:41] LABS: #Lymphocytes 0.8 thou/uL (1.20-3.40); #Monocytes 1.4 thou/uL (0.11-0.59); #Neutrophils 7.3 thou/uL (1.40-6.50); %Eosinophils 0.3 % (0.0-10.0); %Lymphocytes 8.7 % (21.0-51.0); %Monocytes 14.2 % (0.0-10.0); %Neutrophils 76.8 % (42.0-75.0); Hemoglobin 9.2 g/dL (12.0-16.0); Mean Corpuscular HGB CONC 33.8 g/dL (32.0-36.0); Mean Corpuscular Volume 88.5 fL (78.0-98.0); Mean Platelet Volume 7.2 fL (7.4-10.4); Platelet Count 228 thou/uL (130-400); Red Blood Cell (RBC) Count 3.07 mill/uL (4.20-5.40); White Blood Cell (WBC) Count 9.5 thou/uL (4.8-10.8)
[2020-12-21 05:05] LABS: Anion Gap 18 mmol/L (10-20); BUN (Urea Nitrogen) 8 mg/dL (9.8-20.1); Calc. Creatinine Clearance 120 mL/min (70-130); Calcium 7.8 mg/dL (7.8-10.44); Carbon Dioxide 22 mmol/L (23-31); Chloride 101 mmol/L (98-107); Glucose 71 mg/dL (83-110); Potassium 3.1 mmol/L (3.5-5.1); Sodium 138 mmol/L (136-145)
[2020-12-21] MEDS: Vancomycin HCl 25 MG/ML Oral PO SCH ×4 (05:13→22:07)
[2020-12-21] MEDS: Metoprolol Tartrate 5 MG/5 ML VIAL IVP SCH ×4 (05:14→23:37)
[2020-12-21] MEDS: Piperacillin/Tazobactam 3.375 GM in Sodium Chloride 0.9% 100 ML IVPB SCH ×3 (06:40→23:36)
[2020-12-21] MEDS ORDERED: Potassium Chloride 20 MEQ TAB PO SCH (07:00)
[2020-12-21] MEDS: Mometasone 200 MCG/Formoterol 5 MCG 120 PUFF INHALER INH SCH ×2 (07:43→18:21)
[2020-12-21] MEDS: methylPREDNISolone Sod Succ 40 MG VIAL IVP SCH (09:40)
[2020-12-21] MEDS: Furosemide 40 MG/4 ML VIAL SLOW IVP SCH (09:40)
[2020-12-21] MEDS: Sodium Bicarbonate Tab 325 MG TAB PO SCH ×2 (09:46→20:44)
[2020-12-21] MEDS: HYDROcodone/Acetaminophen 5/325 mg Tablet PO PRN ×3 (11:36→22:07)
[2020-12-21 13:14] VITALS: BMI 25.0
[2020-12-21] MEDS: Atorvastatin Calcium 20 MG TAB PO SCH (20:44)
[2020-12-21] MEDS: Saccharomyces boulardii 250 MG CAP PO SCH (20:44)
[2020-12-21] MEDS ORDERED: Melatonin 3 MG TAB PO SCH (22:56)
[2020-12-22] MEDS ORDERED: diphenhydrAMINE 25 MG CAP PO SCH (01:20)
[2020-12-22] MEDS: Vancomycin HCl 25 MG/ML Oral PO SCH ×4 (04:35→22:01)
[2020-12-22 04:50] LABS: #Basophils 0.1 thou/uL (0.0-0.2); #Lymphocytes 0.7 thou/uL (1.20-3.40); #Monocytes 0.8 thou/uL (0.11-0.59); #Neutrophils 4.4 thou/uL (1.40-6.50); %Basophils 1.2 % (0.0-1.0); %Eosinophils 0.2 % (0.0-10.0); %Lymphocytes 10.8 % (21.0-51.0); %Monocytes 14.1 % (0.0-10.0); %Neutrophils 73.7 % (42.0-75.0); Hemoglobin 9.3 g/dL (12.0-16.0); Mean Corpuscular HGB CONC 33.5 g/dL (32.0-36.0); Mean Corpuscular Hemoglobin 29.8 pg (27.0-31.0); Mean Platelet Volume 7.4 fL (7.4-10.4); Platelet Count 210 thou/uL (130-400); RBC Distribution Width 16.2 % (11.5-14.5); Red Blood Cell (RBC) Count 3.12 mill/uL (4.20-5.40)
[2020-12-22 05:05] LABS: Phosphorus 2.4 mg/dL (2.3-4.7)
[2020-12-22 05:07] LABS: Anion Gap 13 mmol/L (10-20); BUN (Urea Nitrogen) 8 mg/dL (9.8-20.1); Calc. Creatinine Clearance 120 mL/min (70-130); Calcium 7.7 mg/dL (7.8-10.44); Carbon Dioxide 27 mmol/L (23-31); Chloride 102 mmol/L (98-107); Glucose 99 mg/dL (83-110); Magnesium 1.4 mg/dL (1.6-2.6); Sodium 139 mmol/L (136-145)
[2020-12-22 05:11] LABS: Potassium 2.9 mmol/L (3.5-5.1)
[2020-12-22] MEDS ORDERED: Potassium Chloride 20 MEQ TAB PO SCH (05:30)
[2020-12-22] MEDS ORDERED: Magnesium 2 GM/50 ML 2 GM in Premix Bag 1 BAG IVPB SCH (05:30)
[2020-12-22] MEDS: Metoprolol Tartrate 5 MG/5 ML VIAL IVP SCH ×4 (06:00→23:55)
[2020-12-22] MEDS ORDERED: Magnesium Sulfate 3 GM in Sodium Chloride 0.9% 100 ML IVPB SCH (07:00)
[2020-12-22] MEDS: Mometasone 200 MCG/Formoterol 5 MCG 120 PUFF INHALER INH SCH ×2 (07:31→18:34)
[2020-12-22] MEDS: Potassium Bicarbonate/Cit Ac 20 MEQ TAB PO SCH ×2 (07:47→11:00)
[2020-12-22] MEDS: Furosemide 40 MG/4 ML VIAL SLOW IVP SCH (08:22)
[2020-12-22] MEDS: Piperacillin/Tazobactam 3.375 GM in Sodium Chloride 0.9% 100 ML IVPB SCH ×3 (08:22→22:01)
[2020-12-22] MEDS: methylPREDNISolone Sod Succ 40 MG VIAL IVP SCH (08:23)
[2020-12-22] MEDS: Sodium Bicarbonate Tab 325 MG TAB PO SCH ×2 (08:25→22:01)
[2020-12-22] MEDS: HYDROcodone/Acetaminophen 5/325 mg Tablet PO PRN ×4 (08:27→22:02)
[2020-12-22] MEDS: Nystatin 500,000 UNITS/5 ML UDCUP SSW SCH ×3 (13:18→22:00)
[2020-12-22] MEDS: Saccharomyces boulardii 250 MG CAP PO SCH (22:00)
[2020-12-22] MEDS: Atorvastatin Calcium 20 MG TAB PO SCH (22:00)
[2020-12-22] MEDS: Melatonin 3 MG TAB PO PRN (22:02)
[2020-12-23] MEDS ORDERED: Lorazepam 2 MG/ML VIAL SLOW IVP SCH (03:32)
[2020-12-23] MEDS: Metoprolol Tartrate 5 MG/5 ML VIAL IVP SCH ×2 (05:34→11:17)
[2020-12-23] MEDS: Mometasone 200 MCG/Formoterol 5 MCG 120 PUFF INHALER INH SCH (07:13)
[2020-12-23] MEDS: Piperacillin/Tazobactam 3.375 GM in Sodium Chloride 0.9% 100 ML IVPB SCH (08:05)
[2020-12-23] MEDS: methylPREDNISolone Sod Succ 40 MG VIAL IVP SCH (08:05)
[2020-12-23] MEDS: Nystatin 500,000 UNITS/5 ML UDCUP SSW SCH (08:05)
[2020-12-23] MEDS: Sodium Bicarbonate Tab 325 MG TAB PO SCH (08:05)
[2020-12-23] MEDS: Furosemide 40 MG/4 ML VIAL SLOW IVP SCH (08:05)
[2020-12-23 08:46] LABS: SARS-CoV-2 PCR by NAA Not Detected (NotDetected)
[2020-12-23 11:47] VITALS: BP 101/54; TEMP 98.5
== END 2020-12-23 12:55 | disposition hospice, inpatient (51) | DRG 871 ==
LOC: ERS 18:44 → ERHOLD 22:40 → 2SW 12-06 16:34 → CCU 12-15 19:01 → 2NO 12-18 12:28
PROVIDERS: ADMIT Internal Medicine; ATTEND Internal Medicine
PROC: 3E033XZ Introduction of Vasopressor into Peripheral Vein, Percutaneous Approach (ICD-10-PCS; principal; 2020-12-04)
PROC: 5A09457 Assistance with Respiratory Ventilation, 24-96 Consecutive Hours, Continuous Positive Airway Pressure (ICD-10-PCS; 2020-12-05)
PROC: 30233N1 Transfusion of Nonautologous Red Blood Cells into Peripheral Vein, Percutaneous Approach (ICD-10-PCS; 2020-12-15)
PROC: 02H633Z Insertion of Infusion Device into Right Atrium, Percutaneous Approach (ICD-10-PCS; 2020-12-15)
PROC: B548ZZA Ultrasonography of Superior Vena Cava, Guidance (ICD-10-PCS; 2020-12-15)
PROC: 0DJ08ZZ Inspection of Upper Intestinal Tract, Via Natural or Artificial Opening Endoscopic (ICD-10-PCS; 2020-12-15)
PROC: 0DJD8ZZ Inspection of Lower Intestinal Tract, Via Natural or Artificial Opening Endoscopic (ICD-10-PCS; 2020-12-15)
DX: A41.9 Sepsis, unspecified organism (principal); R65.21 Severe sepsis with septic shock; J96.01 Acute respiratory failure with hypoxia; J18.9 Pneumonia, unspecified organism; K55.039 Acute (reversible) ischemia of large intestine, extent unspecified; A04.72 Enterocolitis due to Clostridium difficile, not specified as recurrent; N17.9 Acute kidney failure, unspecified; J44.1 Chronic obstructive pulmonary disease with (acute) exacerbation; I24.8 Other forms of acute ischemic heart disease; E87.2 Acidosis; R45.851 Suicidal ideations; K92.2 Gastrointestinal hemorrhage, unspecified; D62 Acute posthemorrhagic anemia; K63.3 Ulcer of intestine; E46 Unspecified protein-calorie malnutrition; Z51.5 Encounter for palliative care; Z66 Do not resuscitate; Z20.822 Contact with and (suspected) exposure to COVID-19; F41.9 Anxiety disorder, unspecified; F32.A Depression, unspecified; I25.10 Atherosclerotic heart disease of native coronary artery without angina pectoris; E78.5 Hyperlipidemia, unspecified; M81.0 Age-related osteoporosis without current pathological fracture; K21.9 Gastro-esophageal reflux disease without esophagitis; I10 Essential (primary) hypertension; E66.9 Obesity, unspecified; K22.2 Esophageal obstruction; G89.29 Other chronic pain; M54.9 Dorsalgia, unspecified; F17.210 Nicotine dependence, cigarettes, uncomplicated; R53.81 Other malaise; E83.39 Other disorders of phosphorus metabolism; E87.6 Hypokalemia; Z85.118 Personal history of other malignant neoplasm of bronchus and lung; Z99.81 Dependence on supplemental oxygen; Z92.3 Personal history of irradiation; Z79.82 Long term (current) use of aspirin; Z79.899 Other long term (current) drug therapy; Z95.5 Presence of coronary angioplasty implant and graft; Z90.49 Acquired absence of other specified parts of digestive tract; Z90.710 Acquired absence of both cervix and uterus; Z68.22 Body mass index [BMI] 22.0-22.9, adult; I25.2 Old myocardial infarction
CPT/HCPCS: 36415; 36416; 36430; 36556; 51701; 71045; 71260; 74177; 80048; 80053; 80202; 81003; 82553; 82805; 83605; 83690; 83735; 83880; 84100; 84484; 85025; 85610; 85730; 86850; 86900; 86901; 87040; 87086; 87324; 87449; 87493; 93005; 93010; 93306; 94640; 94660; 96365; 96366; 96367; 99292; C9113; J0456; J0692; J0696; J1650; J1940; J2060; J2270; J2405; J2543; J2704; J2920; J2930; J3370; J3475; J3490; J7050; J7120; J7620; P9016; P9045; Q9967; U0002; U0003; U0005